=== PATIENT | male | born 1925 | race Caucasian/White ===

== ENCOUNTER → 2016-06-11 | Outpatient (CLI) | payer BC ==
[~2016-06-11] MED LIST: ASPEC81 PO; ATOR-24 PO; CLOP1TAB15 PO; LEVE500T13 PO; LPT40 PO; OXYB1TAB31 PO; PLV75 PO; VLTG EXT
--- NOTE | 2016-06-11 16:53 | DIAGNOSTIC IMAGING REPORT ---
RIGHT WRIST MIN 3 VIEWS ROUTINE CLINICAL HISTORY: Right wrist pain and swelling COMPARISON: None. DISCUSSION: The bones are osteopenic. No acute fractures are visualized. There are vascular calcifications present. There are moderate advanced degenerative changes within the radiocarpal joint. There is secondary narrowing of the radiolunate joint space with lunate sclerosis. There is widening of the scapholunate distance. This likely indicates a scapholunate ligamentous disruption. There is a cyst within the distal radius likely degenerative IMPRESSION: Osteopenia and moderately advanced degenerative change. No acute fractures. Electronically signed by: Rodney Green M.D. 06/11/2016 4:51 PM Dictated Date/Time: 06/11/2016 4:50 PM
--- NOTE | 2016-06-11 16:59 | DIAGNOSTIC IMAGING REPORT ---
RIGHT ELBOW MIN 3 VIEWS ROUTINE CLINICAL HISTORY: Pain and swelling COMPARISON: None. DISCUSSION: There is a joint effusion. There are advanced arthritic changes with intra-articular calcified loose bodies. No acute fractures are visualized. There are no dislocations. There is mild posterior soft tissue swelling IMPRESSION: 1. Advanced arthritic changes. Joint effusion. 2. No acute fractures identified Electronically signed by: Rodney Green M.D. 06/11/2016 4:57 PM Dictated Date/Time: 06/11/2016 4:51 PM
[2016-06-11 17:43] LABS: BASO % 0.4 %; BASO ABS # 0.04 K/uL (0-0.2); COMPLETE YES; EOS % 2.3 %; IG% 0.2 %; LYMPH % 13.3 %; LYMPH ABS # 1.36 K/uL (1.2-3.4); MEAN CELL VOLUME 95.9 fL (80-100); MEAN CORPUSCULAR HEMOGLOBIN 31.9 pg (25-34); MEAN CORPUSCULAR HGB CONC 33.2 g/dl (32-36); MEAN PLATELET VOLUME 9.6 fL (7.4-10.4); MONO % 14.8 %; PLATELET COUNT 385 K/uL (130-400); RED BLOOD COUNT 3.86 M/uL (4.7-6.1); WHITE BLOOD COUNT 10.26 K/uL (4.8-10.8)
[2016-06-11 18:10] LABS: ALT/SGPT 28 U/L (12-78); BLOOD UREA NITROGEN 22 mg/dl (7-18); BUN/CREATININE RATIO 24.3 (10-20); CALCIUM 8.7 mg/dl (8.5-10.1); CARBON DIOXIDE 25 mmol/L (21-32); CHLORIDE 106 mmol/L (98-107); CREATININE 0.91 mg/dl (0.60-1.40); GLUCOSE 86 mg/dl (70-99); POTASSIUM 4.1 mmol/L (3.5-5.1); SODIUM 141 mmol/L (136-145)
[2016-06-11 18:12] LABS: ALB/GLOB RATIO 0.9 (0.9-2); ALKALINE PHOSPHATASE 156 U/L (45-117); AST/SGOT 31 U/L (15-37)
== END | disposition home or self-care (01) ==
LOC: C.RAD1850 16:27
PROVIDERS: ATTEND Internal Medicine
DX: M25.521 Pain in right elbow (principal); M25.421 Effusion, right elbow

== ENCOUNTER 2016-07-18 13:06 | Inpatient (IN) | payer BC, OTHER ==
[~2016-07-18] VITALS: Ht 162.6 cm; Wt 66.3 kg
[~2016-07-18 13:06] MED LIST changes: -ATOR-24 PO; -CLOP1TAB15 PO; -OXYB1TAB31 PO; -VLTG EXT
[2016-07-18] MEDS ORDERED: SODIUM CHLORIDE 0.9% 1000ML 500 ML IV STA (14:20)
[2016-07-18] MEDS ORDERED: ACETAMINOPHEN 500 MG TAB PO STA (14:20)
--- NOTE | 2016-07-18 14:28 | EMERGENCY ROOM VISIT NOTE ---
History Report prepared by Mario: Joseph Mcgee Under the Supervision of: Dr. Edmund Urbina M.D. First contact with patient: 14:07 Chief Complaint: FALL Stated Complaint: FALL, SORE RIBS History of Present Illness The patient is an 89 year old male who presents to the Emergency Room due to a falling episode that occurred several hours prior to arrival. Per the patient's daughter, the patient was found on the floor of the entryway to his home this afternoon. The patient states that he thinks he remembers slipping out of bed and not being able to get himself back up, but is not certain. He is complaining of pain in his lower left ribs following the fall, but was able to ambulate a short distance with his walker after being helped to his feet. The patient's daughter states that she checks on the patient daily, and he seemed to be behaving at baseline yesterday. He has been showing symptoms of memory loss and dementia, but was not out of the ordinary yesterday. He has had a CVA in the past. The patient also has a history of several back surgeries and does not have much feeling in his legs. He is on Plavix as a blood thinner. The patient lives at home alone. He denies any urinary irregularities, or vomiting/ diarrhea lately. Source of History: patient, family Onset: Several Hours [employer] Position: other (Global) Quality: other (Falling episode) Review of Systems See HPI for pertinent positives & negatives. A total of 10 systems reviewed and were otherwise negative. Past Medical & Surgical Medical Problems: (1) CVA (cerebral vascular accident) (2) Fall (3) Neuropathy (4) Weakness Surgical Problems: (1) S/P lumbar spinal fusion Family History No pertinent family history secondary to age. Social History Smoking Status: Former Smoker Alcohol Use: occasionally Housing Status: lives with family Occupation Status: retired Current/Historical Medications Scheduled Atorvastatin (Atorvastatin Calcium), 40 MG PO QAM Clopidogrel Bisulfate (Clopidogrel), 75 MG PO QAM Levetiracetam (Keppra), 500 MG PO BID Allergies Coded Allergies: Sulfa Antibiotics (Verified Allergy, Unknown, "SULFA DRUGS": UNKNOWN, 06/25) Physical Exam Vital Signs Date Time Temp Pulse Resp B/P Pulse Ox O2 Delivery O2 Flow Rate FiO2 07/18/16 17:51 88 18 165/97 98 Room Air 07/18/16 17:43 98 Room Air 07/18/16 17:27 88 16 165/97 98 Room Air 07/18/16 16:07 98 Room Air 07/18/16 16:07 92 16 162/74 98 Room Air 07/18/16 15:20 93 16 151/77 99 Room Air 07/18/16 13:12 36.3 110 22 136/73 100 Room Air Physical Exam GENERAL: Patient is in no acute distress. HEENT: No acute trauma, normocephalic atraumatic, mucous membranes dry, no nasal congestion, no scleral icterus. NECK: No stridor, no adenopathy, no meningismus, trachea is midline. CHEST: There is tenderness along the left lateral lower ribs, no contusion. LUNGS: Clear to auscultation bilaterally, no wheeze, no rhonchi, breath sounds equal. HEART: Without murmurs gallops or rubs, regular rate and rhythm. ABDOMEN: Soft, nontender, bowel sounds positive, no hernias, no peritonitis. EXTREMITIES: No obvious extremity fractures. There are abrasions and contusions consistent with crawling on the hands and knees. Thee are elbow contusions noted as well. No cellulitis or edema. NEUROLOGIC: Oriented x 3, no acute motor or sensory deficits, no focal weakness. SKIN: No rash, no jaundice, no diaphoresis. Medical Decision & Procedures ER Provider Diagnostic Interpretation: X ray results and stated below per my interpretation and radiologist interpretation. Other radiology results and stated below per my review and radiologist interpretation: CT OF THE HEAD WITHOUT CONTRAST CLINICAL HISTORY: Altered mental status. Weakness. Fall. COMPARISON STUDY: Head CT and MRI of the brain June 25, 2015. CT DOSE: 823.94 mGycm TECHNIQUE: Helical axial images of the head were obtained without IV contrast. Automated exposure control was utilized for the study. FINDINGS: No acute intracranial hemorrhage, midline shift or mass effect is present. Ventricular system is stable. The basilar cisterns are patent. There are no extra-axial collections. Scattered old lacunar infarcts are noted as well as moderate small vessel disease. There are no findings to suggest acute dural sinus thrombosis or acute territorial infarct. There is no calvarial fracture. IMPRESSION: 1. No acute intracranial findings. No significant change since previous exam. 2. No calvarial fracture. Electronically signed by: Sam Patrick M.D. 07/18/2016 3:38 PM Dictated Date/Time: 07/18/2016 3:36 PM LEFT RIBS UNILATERAL WITH PA CHEST CLINICAL HISTORY: Left-sided rib pain following fall. COMPARISON STUDY: Chest radiograph June 25, 2015. FINDINGS: There is no pneumothorax or pleural effusion. A 2 level pedicle screw fusion is noted. Cardiomediastinal silhouette is stable. Hazy left basilar opacity likely reflects atelectasis. There are several old left-sided rib fractures. No acute left-sided rib fractures are identified by radiography. IMPRESSION: No pneumothorax. No acute left-sided rib fractures identified. Several old left-sided rib fractures. Electronically signed by: Sam Patrick M.D. 07/18/2016 4:41 PM Dictated Date/Time: 07/18/2016 4:36 PM Laboratory Results 07/18/16 15:00 Red Blood Count 4.05, Mean Corpuscular Volume 92.1, Mean Corpuscular Hemoglobin 31.4, Mean Corpuscular Hemoglobin Concent 34.0, Mean Platelet Volume 9.5, Neutrophils (%) (Auto) 82.0, Lymphocytes (%) (Auto) 7.3, Monocytes (%) (Auto) 10.1, Eosinophils (%) (Auto) 0.2, Basophils (%) (Auto) 0.2, Neutrophils # (Auto ) 8.71, Lymphocytes # (Auto) 0.78, Monocytes # (Auto) 1.07, Eosinophils # (Auto ) 0.02, Basophils # (Auto) 0.02 07/18/16 15:00 Test 07/18/16 15:00 07/18/16 15:10 White Blood Count 10.62 K/uL (4.8-10.8) Red Blood Count 4.05 M/uL (4.7-6.1) Hemoglobin 12.7 g/dL (14.0-18.0) Hematocrit 37.3 % (42-52) Mean Corpuscular Volume 92.1 fL (80-100) Mean Corpuscular Hemoglobin 31.4 pg (25-34) Mean Corpuscular Hemoglobin Concent 34.0 g/dl (32-36) Platelet Count 283 K/uL (130-400) Mean Platelet Volume 9.5 fL (7.4-10.4) Neutrophils (%) (Auto) 82.0 % Lymphocytes (%) (Auto) 7.3 % Monocytes (%) (Auto) 10.1 % Eosinophils (%) (Auto) 0.2 % Basophils (%) (Auto) 0.2 % Neutrophils # (Auto) 8.71 K/uL (1.4-6.5) Lymphocytes # (Auto) 0.78 K/uL (1.2-3.4) Monocytes # (Auto) 1.07 K/uL (0.11-0.59) Eosinophils # (Auto) 0.02 K/uL (0-0.5) Basophils # (Auto) 0.02 K/uL (0-0.2) RDW Standard Deviation 47.9 fL (36.4-46.3) RDW Coefficient of Variation 14.2 % (11.5-14.5) Immature Granulocyte % (Auto) 0.2 % Immature Granulocyte # (Auto) 0.02 K/uL (0.00-0.02) Prothrombin Time 11.3 SECONDS (9.0-12.0) Prothromb Time International Ratio 1.1 (0.9-1.1) Activated Partial Thromboplast Time 28.9 SECONDS (21.0-31.0) Partial Thromboplastin Ratio 1.1 Anion Gap 11.0 mmol/L (3-11) Est Creatinine Clear Calc Drug Dose 42.0 ml/min Estimated GFR () 77.0 Estimated GFR (Non- 66.4 BUN/Creatinine Ratio 19.0 (10-20) Calcium Level 8.7 mg/dl (8.5-10.1) Magnesium Level 2.2 mg/dl (1.8-2.4) Total Bilirubin 0.5 mg/dl (0.2-1) Aspartate Amino Transf (AST/SGOT) 27 U/L (15-37) Alanine Aminotransferase (ALT/SGPT) 32 U/L (12-78) Alkaline Phosphatase 134 U/L (45-117) Total Creatine Kinase 194 U/L (39-308) Troponin I 0.027 ng/ml (0-0.045) Total Protein 6.7 gm/dl (6.4-8.2) Albumin 3.6 gm/dl (3.4-5.0) Globulin 3.1 gm/dl (2.5-4.0) Albumin/Globulin Ratio 1.2 (0.9-2) Thyroid Stimulating Hormone (TSH) 3.300 uIu/ml (0.300-4.500) Urine Color YELLOW Urine Appearance CLEAR (CLEAR) Urine pH 5.5 (4.5-7.5) Urine Specific [place] 1.010 (1.000-1.030) Urine Protein NEG (NEG) Urine Glucose (UA) NEG (NEG) Urine Ketones NEG (NEG) Urine Occult Blood TRACE (NEG) Urine Nitrite NEG (NEG) Urine Bilirubin NEG (NEG) Urine Urobilinogen NEG (NEG) Urine Leukocyte Esterase NEG (NEG) Urine WBC (Auto) 0 /hpf (0-5) Urine RBC (Auto) 0-4 /hpf (0-4) Urine Hyaline Casts (Auto) 1-5 /lpf (0-5) Urine Epithelial Cells (Auto) 0-5 /lpf (0-5) Urine Bacteria (Auto) NEG (NEG) Urine RBC /hpf (0-4) Urine WBC /hpf (0-5) Urine Epithelial Cells /lpf (0-5) Urine Bacteria (NEG) Laboratory results reviewed by me. Medications Administered Medications (Trade) Dose Ordered Sig/Sylvie Route Start Time Stop Time Status Last Admin Dose Admin Sodium Chloride (Nss 1000ml) 500 ml @ 999 mls/hr Q31M STAT IV 07/18/16 14:20 07/18/16 14:50 DC 07/18/16 15:30 999 MLS/HR Acetaminophen (Tylenol Tab) 1,000 mg NOW STAT PO 07/18/16 14:20 07/18/16 14:24 DC 07/18/16 16:09 1,000 MG ECG Indication: altered mental status, weakness Rate (beats per minute): 95 Rhythm: sinus rhythm Findings: 1st degree AV block, no acute ischemic change, no ectopy, other ( Artifact present) ED Course 1413: The patient was evaluated in room C1. A complete history and physical exam was performed. 1420: Ordered Acetaminophen 1000 mg PO, Sodium Chloride 500 mL @ 999 mL/hr IV. 1534: I checked on the patient at this time, he had no further complaints 1657: I reevaluated the patient at this time. He was resting in bed. 1707: I discussed the case with Dr. Cesar López [facility] hospitalist, he will evaluate the patient for further treatment. Medical Decision Differential diagnosis include: dehydration, anemia, electrolyte imbalance, stroke, intracranial bleeding, debilitation, urinary tract infection, and other infection. There is no leukocytosis or worrisome anemia. No significant electrolyte abnormality, kidney failure or hepatitis. EKG shows a sinus rhythm, no acute ischemia. Cardiac enzyme testing times one is not consistent with acute cardiac injury. There is no rhabdomyolysis. The patient appears to be in a euthyroid state. Urinalysis does not show signs of infection. There is no coagulopathy. Left rib series shows some old, healed fractures, no acute rib fracture, no pneumonia or pneumothorax. Brain CT showed no acute bleed or mass effect. On exam, the patient had lower extremity weakness which seemed equal on both sides. He did seem dehydrated clinically. The patient received IV saline, he was given oral Tylenol for his pain. I do not think the patient is safe for discharge. He has been crawling on his hands and knees as he could not get off the floor on his own. He is weak, especially in his lower extremities bilaterally. His daughter states that he could not stand and walk as usual with his walker today once she got him up off the floor of the house. I think the patient requires strengthening, further workup in the hospital. I talked to case management. The on-call hospitalist was consulted. Consults Time Called: 1700 Consulting Physician: Dr. Cesar EDMONDS Hospitalist Returned Call: [phone] I discussed the case with Dr. Cesar [facility]DS [facility], he will evaluate the patient for further treatment. Impression Primary Impression: Weakness Additional Impressions: Fall Contusion of rib on left side Dehydration Scribe Attestation The scribe's documentation has been prepared under my direction and personally reviewed by me in its entirety. I confirm that the note above accurately reflects all work, treatment, procedures, and medical decision making performed by me. Departure Information Dispostion Being Evaluated By Hospitalist RV. Felix MD (PCP) Patient Instructions My [facility] Problem Qualifiers Additional Impressions: Fall Encounter type: initial encounter Qualified Codes: W19.XXXA - Unspecified fall, initial encounter Contusion of rib on left side Encounter type: initial encounter Qualified Codes: S20.212A - Contusion of left front wall of thorax, initial encounter
[2016-07-18 15:07] LABS: BASO % 0.2 %; BASO ABS # 0.02 K/uL (0-0.2); COMPLETE YES; EOS % 0.2 %; HEMATOCRIT 37.3 % (42-52); IG% 0.2 %; LYMPH % 7.3 %; LYMPH ABS # 0.78 K/uL (1.2-3.4); MEAN CELL VOLUME 92.1 fL (80-100); MEAN CORPUSCULAR HEMOGLOBIN 31.4 pg (25-34); MEAN PLATELET VOLUME 9.5 fL (7.4-10.4); MONO % 10.1 %; PLATELET COUNT 283 K/uL (130-400); RED BLOOD COUNT 4.05 M/uL (4.7-6.1); WHITE BLOOD COUNT 10.62 K/uL (4.8-10.8)
[2016-07-18 15:19] LABS: INR 1.1 (0.9-1.1); PARTIAL THROMBOPLASTIN RATIO 1.1; PROTHROMBIN TIME (PATIENT) 11.3 SECONDS (9.0-12.0)
[2016-07-18 15:25] LABS: CALCIUM 8.7 mg/dl (8.5-10.1); MAGNESIUM 2.2 mg/dl (1.8-2.4); POTASSIUM 4.5 mmol/L (3.5-5.1)
[2016-07-18 15:29] LABS: URINE APPEARANCE CLEAR (CLEAR); URINE BILIRUBIN NEG (NEG); URINE COLOR YELLOW; URINE NITRITE NEG (NEG); URINE PH 5.5 (4.5-7.5); UROBILINOGEN NEG (NEG)
[2016-07-18 15:36] LABS: ALB/GLOB RATIO 1.2 (0.9-2); THYROID STIMULATING HORMONE 3.3 uIu/ml (0.300-4.500)
--- NOTE | 2016-07-18 15:39 | DIAGNOSTIC IMAGING REPORT ---
CT OF THE HEAD WITHOUT CONTRAST CLINICAL HISTORY: Altered mental status. Weakness. Fall. COMPARISON STUDY: Head CT and MRI of the brain June 25, 2015. CT DOSE: 823.94 mGycm TECHNIQUE: Helical axial images of the head were obtained without IV contrast. Automated exposure control was utilized for the study. FINDINGS: No acute intracranial hemorrhage, midline shift or mass effect is present. Ventricular system is stable. The basilar cisterns are patent. There are no extra-axial collections. Scattered old lacunar infarcts are noted as well as moderate small vessel disease. There are no findings to suggest acute dural sinus thrombosis or acute territorial infarct. There is no calvarial fracture. IMPRESSION: 1. No acute intracranial findings. No significant change since previous exam. 2. No calvarial fracture. Electronically signed by: Sam Patrick M.D. 07/18/2016 3:38 PM Dictated Date/Time: 07/18/2016 3:36 PM
[2016-07-18 15:47] LABS: REVIEW REQ? NO; URINE EPITHELIAL CELL AUTO 0-5 /lpf (0-5)
[2016-07-18 15:48] LABS: ZZURINE CULT IF INDIC CATH NO
[2016-07-18 15:49] LABS: MANUAL MICROSCOPIC REQUIRED? NO
--- NOTE | 2016-07-18 16:52 | DIAGNOSTIC IMAGING REPORT ---
LEFT RIBS UNILATERAL WITH PA CHEST CLINICAL HISTORY: Left-sided rib pain following fall. COMPARISON STUDY: Chest radiograph June 25, 2015. FINDINGS: There is no pneumothorax or pleural effusion. A 2 level pedicle screw fusion is noted. Cardiomediastinal silhouette is stable. Hazy left basilar opacity likely reflects atelectasis. There are several old left-sided rib fractures. No acute left-sided rib fractures are identified by radiography. IMPRESSION: No pneumothorax. No acute left-sided rib fractures identified. Several old left-sided rib fractures. Electronically signed by: Sam Patrick M.D. 07/18/2016 4:41 PM Dictated Date/Time: 07/18/2016 4:36 PM
[2016-07-18] MEDS ORDERED: MAGNESIUM HYDROXIDE SUSP 30 ML UDC PO PRN (17:15)
[2016-07-18] MEDS ORDERED: POLYETHYLENE (MIRALAX) 17 GM PACK PO PRN (17:15)
[2016-07-18] MEDS ORDERED: ONDANSETRON INJ 2 MG/ML 2 ML VIAL IV PRN (17:15)
[2016-07-18] MEDS ORDERED: ALUMINUM/MAGNESIUM/SIMETH (MAALOX MAX) 30 ML UDC PO PRN (17:15)
[2016-07-18 17:43] VITALS: O2SAT 98; Ht 162.6 cm; Wt 66.3 kg
--- NOTE | 2016-07-18 18:49 | HISTORY & PHYSICAL EXAMINATION ---
DATE OF ADMISSION: 07/18/2016 CHIEF COMPLAINT: Fall and weakness. HISTORY OF PRESENT ILLNESS: This is an 89-year-old male, who presents to the Emergency Room due to a fall that happened this afternoon. The patient's daughter is present at the bedside. They found him on the floor in the entryway of his home this afternoon. The patient lives alone. The patient stated that he remembers slipping off the bed and not being able to get himself back up. The patient is not certain. He is complaining of pain in his lower ribs following the fall on the left side. His daughter checks on him daily and she mentioned that he was showing symptoms of memory loss and dementia today. He has a history of stroke before and he is taking Plavix because of that. He denies any urinary complaints. No nausea, vomiting, diarrhea or constipation. REVIEW OF SYSTEMS: Negative except as above. Ten out of fourteen systems were reviewed. PAST MEDICAL HISTORY: CVA, fall, neuropathy, weakness status post lumbar fusion, history of seizures. SOCIAL HISTORY: Does not smoke. Drinks occasionally, a few drinks a week. Lives alone at home. CURRENT MEDICATIONS: Atorvastatin 40 mg daily, Plavix 75 mg p.o. daily, Keppra 500 mg p.o. b.i.d. ALLERGIES: PATIENT HAS ALLERGY TO SULFA ANTIBIOTICS. PHYSICAL EXAMINATION: VITAL SIGNS: Temperature 36.3 degrees, pulse 92, respirations 16, blood pressure 162/74, 98% on room air. GENERAL: Not in acute distress. HEENT: Normocephalic, atraumatic. PERRLA, EOMI. Mouth; mucous membranes are dry. No lesions. NECK: No JVD. Trachea is midline. Thyroid is not enlarged. LUNGS: Clear to auscultation bilateral. No wheezes, no rhonchi. HEART: There is tenderness along the left lateral lower ribs. No murmurs. RRR. S1, S2. ABDOMEN: Soft, nontender and nondistended. Bowel sounds present bilateral. EXTREMITIES: No clubbing or cyanosis. There is trace pedal edema present and also there is elbow contusion noted. No cellulitis. NEUROLOGIC: Alert, oriented x3. Motor and sensory are normal. Deep tendon reflexes 2+ bilateral. SKIN: No rash. No jaundice. LABORATORY DATA: White count of 10.6, hemoglobin of 12.7, platelets 283. BMP: Sodium 144, potassium 4.5, chloride 108, CO2 of 25, BUN 19, creatinine 1.0, glucose 115, albumin of 3.6. Urinalysis; essentially normal. ASSESSMENT AND PLAN: An 89-year-old male, who comes with a fall and weakness from home. 1. Fall, weakness and fatigue likely secondary to dehydration. Start patient on 50 mL per hour normal saline with lower doses because of the lower extremity trace pedal edema. 2. Fall with left rib pain, chest x-ray showing no evidence of new fractures, just old fractures. PT/OT evaluation. The patient may require placement. Family in agreement with that. 3. History of cerebrovascular accident, possible dementia, neuropathy, hyperlipidemia, seizures. Continue atorvastatin, clopidogrel and levothyroxine. Deep venous thrombosis gastrointestinal prophylaxis. The patient is Do Not Resuscitate. Time spent doing this admission; 48 minutes. MTDD
[2016-07-18] MEDS: SODIUM CHLORIDE 0.9% 1000ML 1,000 ML IV SCH (19:40)
[2016-07-18] MEDS ORDERED: NURSING DECISION MEDICATION ORDER SCH (20:00)
[2016-07-18] MEDS: LEVETIRACETAM 500 MG TAB PO SCH (20:32)
[2016-07-18] MEDS: ATORVASTATIN 40 MG TAB PO SCH (20:32)
[2016-07-18] MEDS: ACETAMINOPHEN 325 MG TAB PO PRN (20:41)
[2016-07-18] MEDS: HEPARIN SOD 5000 UNIT/0.5 ML CARP SQ SCH (20:41)
[2016-07-18 22:03] VITALS: BP 144/79; PULSE 85; TEMP 36.3; O2SAT 99
[2016-07-18 22:47] VITALS: BP 125/79; PULSE 83; TEMP 36.8; O2SAT 96
[2016-07-19 06:51] LABS: BASO % 0.5 %; BASO ABS # 0.03 K/uL (0-0.2); COMPLETE YES; EOS % 3.1 %; HEMATOCRIT 32.9 % (42-52); IG% 0.3 %; LYMPH % 23.5 %; LYMPH ABS # 1.36 K/uL (1.2-3.4); MEAN CELL VOLUME 92.7 fL (80-100); MEAN CORPUSCULAR HEMOGLOBIN 31.3 pg (25-34); MEAN CORPUSCULAR HGB CONC 33.7 g/dl (32-36); MEAN PLATELET VOLUME 9.6 fL (7.4-10.4); MONO % 14.2 %; NEUT % 58.4 %; PLATELET COUNT 265 K/uL (130-400); RED BLOOD COUNT 3.55 M/uL (4.7-6.1); WHITE BLOOD COUNT 5.78 K/uL (4.8-10.8)
[2016-07-19 07:15] LABS: BUN/CREATININE RATIO 18.3 (10-20); CALCIUM 8.3 mg/dl (8.5-10.1); CREATININE 0.92 mg/dl (0.60-1.40); POTASSIUM 3.8 mmol/L (3.5-5.1)
[2016-07-19 07:52] VITALS: BP 124/74; PULSE 75; TEMP 36.7; O2SAT 95
[2016-07-19] MEDS: CLOPIDOGREL BISULFATE 75 MG TAB PO SCH (08:05)
[2016-07-19] MEDS: LEVETIRACETAM 500 MG TAB PO SCH ×2 (08:05→20:30)
[2016-07-19] MEDS: HEPARIN SOD 5000 UNIT/0.5 ML CARP SQ SCH ×2 (08:13→20:36)
--- NOTE | 2016-07-19 08:23 | Hospitalist Progress Note ---
Hospitalist Progress Note Date of Service Jul 19, 2016. Subjective Pt evaluation today including: conversation w/ patient, conversation w/ family , physical exam, chart review, lab review, review of studies, review of inpatient medication list Pain: 5/10 rib pain with movement PO Intake: Good Voiding: no voiding problems The patient was seen and examined this morning. Pt reports moderate pain when he moves in the left side of his ribs. His daughter is present at bedside. Pt is eating ok but drinking poorly prior to admission- he normally only has a small cup of OJ in the morning and then a beer or two daily. Little to no water on a daily basis. Pt lives alone and has PT coming into his house twice weekly for PT since his stroke in Jun 2015. Daughter reports much of the PT is optional though. Discussion was held regarding acute rehab for PT/OT and they are agreeable to this. Constitutional: No chills, No fever, No sweats Eyes: No problem reported ENT: + hearing loss Respiratory: + cough (occasional), No dyspnea on exertion, No shortness of breath, No wheezing Cardiovascular: No chest pain, No orthopnea, No palpitations Abdomen: No diarrhea, No nausea, No pain, No vomiting Musculoskeletal: No joint pain, No muscle pain, No swelling Male : No dysuria Neurologic: + balance problems (uses a walker at baseline with ambulation), + numbness/tingling (BLE secondary to back surgeries), + weakness (LLE, ) Endo: No fatigue Objective Vital Signs Date Time Temp Pulse Resp B/P Pulse Ox O2 Delivery O2 Flow Rate FiO2 07/19/16 07:52 36.7 75 13 124/74 95 Room Air 07/19/16 00:00 Room Air 07/18/16 22:47 36.8 83 16 125/79 96 Room Air 07/18/16 22:03 36.3 85 18 144/79 99 Room Air 07/18/16 19:15 83 18 125/52 97 07/18/16 17:51 88 18 165/97 98 Room Air 07/18/16 17:43 98 Room Air 07/18/16 17:27 88 16 165/97 98 Room Air 07/18/16 16:07 98 Room Air 07/18/16 16:07 92 16 162/74 98 Room Air 07/18/16 15:20 93 16 151/77 99 Room Air 07/18/16 13:12 36.3 110 22 136/73 100 Room Air Physical Exam General Appearance: WD/WN, no apparent distress ENT: pharynx normal, + pertinent finding (hard of hearing, does not wear hearing aid. ) Neck: supple, no JVD Respiratory/Chest: lungs clear, no respiratory distress, no accessory muscle use, + pertinent finding (+ ecchymosis mild overlying the left 9th-11th rib region, some more ecchymosis on the right posterior chest wall, + cough with coase breath sounds present) Cardiovascular: regular rate, rhythm, no murmur Abdomen: normal bowel sounds, non tender, soft Extremities: non-tender, no calf tenderness, + pertinent finding (+ ecchymosis on bilateral knees, + mild ecchymosis of the right inner thigh. ) Neurologic/Psychiatric: alert, normal mood/affect, oriented x 3 Skin: warm/dry Laboratory Results Last 24 Hours Test 07/18/16 15:00 07/18/16 15:10 07/19/16 06:12 White Blood Count 10.62 K/uL 5.78 K/uL Red Blood Count 4.05 M/uL 3.55 M/uL Hemoglobin 12.7 g/dL 11.1 g/dL Hematocrit 37.3 % 32.9 % Mean Corpuscular Volume 92.1 fL 92.7 fL Mean Corpuscular Hemoglobin 31.4 pg 31.3 pg Mean Corpuscular Hemoglobin Concent 34.0 g/dl 33.7 g/dl Platelet Count 283 K/uL 265 K/uL Mean Platelet Volume 9.5 fL 9.6 fL Neutrophils (%) (Auto) 82.0 % 58.4 % Lymphocytes (%) (Auto) 7.3 % 23.5 % Monocytes (%) (Auto) 10.1 % 14.2 % Eosinophils (%) (Auto) 0.2 % 3.1 % Basophils (%) (Auto) 0.2 % 0.5 % Neutrophils # (Auto) 8.71 K/uL 3.37 K/uL Lymphocytes # (Auto) 0.78 K/uL 1.36 K/uL Monocytes # (Auto) 1.07 K/uL 0.82 K/uL Eosinophils # (Auto) 0.02 K/uL 0.18 K/uL Basophils # (Auto) 0.02 K/uL 0.03 K/uL RDW Standard Deviation 47.9 fL 50.2 fL RDW Coefficient of Variation 14.2 % 14.7 % Immature Granulocyte % (Auto) 0.2 % 0.3 % Immature Granulocyte # (Auto) 0.02 K/uL 0.02 K/uL Prothrombin Time 11.3 SECONDS Prothromb Time International Ratio 1.1 Activated Partial Thromboplast Time 28.9 SECONDS Partial Thromboplastin Ratio 1.1 Sodium Level 144 mmol/L 145 mmol/L Potassium Level 4.5 mmol/L 3.8 mmol/L Chloride Level 108 mmol/L 110 mmol/L Carbon Dioxide Level 25 mmol/L 23 mmol/L Anion Gap 11.0 mmol/L 12.0 mmol/L Blood Urea Nitrogen 19 mg/dl 17 mg/dl Creatinine 1.00 mg/dl 0.92 mg/dl Est Creatinine Clear Calc Drug Dose 42.0 ml/min 45.6 ml/min Estimated GFR () 77.0 85.2 Estimated GFR (Non- 66.4 73.5 BUN/Creatinine Ratio 19.0 18.3 Random Glucose 115 mg/dl 77 mg/dl Calcium Level 8.7 mg/dl 8.3 mg/dl Magnesium Level 2.2 mg/dl Total Bilirubin 0.5 mg/dl Aspartate Amino Transf (AST/SGOT) 27 U/L Alanine Aminotransferase (ALT/SGPT) 32 U/L Alkaline Phosphatase 134 U/L Total Creatine Kinase 194 U/L Troponin I 0.027 ng/ml Total Protein 6.7 gm/dl Albumin 3.6 gm/dl Globulin 3.1 gm/dl Albumin/Globulin Ratio 1.2 Thyroid Stimulating Hormone (TSH) 3.300 uIu/ml Urine Color YELLOW Urine Appearance CLEAR Urine pH 5.5 Urine Specific [place] 1.010 Urine Protein NEG Urine Glucose (UA) NEG Urine Ketones NEG Urine Occult Blood TRACE Urine Nitrite NEG Urine Bilirubin NEG Urine Urobilinogen NEG Urine Leukocyte Esterase NEG Urine WBC (Auto) 0 /hpf Urine RBC (Auto) 0-4 /hpf Urine Hyaline Casts (Auto) 1-5 /lpf Urine Epithelial Cells (Auto) 0-5 /lpf Urine Bacteria (Auto) NEG Urine RBC /hpf Urine WBC /hpf Urine Epithelial Cells /lpf Urine Bacteria Assessment and Plan 89 yo M with PMHx of falls, CVA, hypothyroidism, weakness and possible underlying dementia s/p fall with L rib pain. Falls, Weakness, L rib pain - considered dehydration at time of admission and likely with chronic poor fluid intake and etoh use 1-2 beers daily. - Has falled twice within the past 3 months, has a life alert button, family involved, has PT coming into his home twice weekly s/p CVA Jun 2015. - CXR showing old rib fractures, but no new fractures. - CT head without acute intracranial findings. No significant change since previous exam. No calvarial fracture. - Left lower extremity with complaints of shaking and restless leg like syndrome prior to admission but pt reports it has been better since being here - will follow. - PT/OT consulted- pt will likely need to have at least acute rehab placement, will ask CM to assist with this. Hx CVA - Continue atorvastatin, plavix - Hgb stable with recent fall, no signs of repeat CVA as seen on CT. Hematuria - Occult blood on UA: likely due to acute fall with hx of being on plavix. Will check repeat UA today. - Pt denies pain with urination- can consider urological workup for bladder cx if indicated Hypothyroidism - Cont levothyroxine DVT ppx: SCDs Disposition: From home alone, CM to assist with d/c planning, PT/OT consults
[2016-07-19 08:41] VITALS: O2SAT 95
[2016-07-19] MEDS ORDERED: ATORVASTATIN 40 MG TAB PO SCH (09:00)
[2016-07-19] MEDS: SODIUM CHLORIDE 0.9% 1000ML 1,000 ML IV SCH (14:33)
[2016-07-19] MEDS: ACETAMINOPHEN 325 MG TAB PO PRN (18:56)
[2016-07-19] MEDS: ATORVASTATIN 40 MG TAB PO SCH (20:30)
[2016-07-19 23:11] VITALS: BP 156/74; PULSE 16; PULSE 83; TEMP 36.6; O2SAT 95
[2016-07-20] MEDS: ACETAMINOPHEN 325 MG TAB PO PRN ×2 (05:02→09:34)
[2016-07-20 07:36] VITALS: BP 155/80; PULSE 74; TEMP 36.6; O2SAT 95
[2016-07-20] MEDS: LEVETIRACETAM 500 MG TAB PO SCH ×2 (07:50→20:30)
[2016-07-20] MEDS: CLOPIDOGREL BISULFATE 75 MG TAB PO SCH (07:51)
[2016-07-20] MEDS: HEPARIN SOD 5000 UNIT/0.5 ML CARP SQ SCH ×2 (07:54→20:41)
[2016-07-20] MEDS: SODIUM CHLORIDE 0.9% 1000ML 1,000 ML IV SCH (09:33)
--- NOTE | 2016-07-20 11:27 | Hospitalist Progress Note ---
Hospitalist Progress Note Date of Service Jul 20, 2016. Subjective Pt evaluation today including: conversation w/ patient, conversation w/ family , physical exam, chart review, lab review, review of studies, review of inpatient medication list Pain: Left sided rib pain, moderate PO Intake: Eating well, not drinking much fluid Voiding: no voiding problems The patient was seen and examined this morning. Pt reports not sleeping at all last night due to severe pain. He didn't receive anything for pain until this morning; tylenol. He is tired upon entry into the room and daughter states he has just woken up. He's answering appropriately but takes some time to respond to my questions. Denies fever, chills, sweats, heart palpitations, or shortness of breath. Discussed working with PT today and pt plans to later this morning. All Other Systems: Reviewed and Negative (other than per HPI) Objective Vital Signs Date Time Temp Pulse Resp B/P Pulse Ox O2 Delivery O2 Flow Rate FiO2 07/20/16 07:36 36.6 74 18 155/80 95 07/20/16 07:35 Room Air 07/20/16 00:00 Room Air 07/19/16 23:11 36.6 83 16 156/74 95 Room Air 07/19/16 16:00 Room Air Physical Exam General Appearance: WD/WN, no apparent distress Eyes: PERRL, EOMI ENT: pharynx normal, + pertinent finding (slightly hard of hearing) Neck: no adenopathy, no JVD Respiratory/Chest: lungs clear, normal breath sounds, no respiratory distress, no accessory muscle use Cardiovascular: regular rate, rhythm, no gallop, no murmur Abdomen: normal bowel sounds, non tender Extremities: non-tender, no pedal edema, no calf tenderness Neurologic/Psychiatric: alert, + pertinent finding (slow responses to my questions at times, difficulty naming the months backwards. ) Skin: warm/dry, + pertinent finding (+ ecchymosis evolving over left ribs, bilateral knees, and right inner thigh.) Assessment and Plan 89 yo M with PMHx of falls, CVA, hypothyroidism, weakness and possible underlying dementia s/p fall with L rib pain. Falls, Weakness, L rib pain - considered dehydration at time of admission and likely with chronic poor fluid intake and etoh use 1-2 beers daily. - Has falled twice within the past 3 months, has a life alert button, family involved, has PT coming into his home twice weekly s/p CVA Jun 2015. - CXR showing old rib fractures, but no new fractures. - CT head without acute intracranial findings. No significant change since previous exam. No calvarial fracture. - Left lower extremity with complaints of shaking and restless leg like syndrome prior to admission - reports this is worse today but may be due to lack of sleep last night. - PT/OT consulted- CM to assist with this - making referrals to [place] per PT recs for rehab Hx CVA - Continue atorvastatin, plavix - Hgb stable with recent fall, no signs of repeat CVA as seen on CT. Hematuria - Occult blood on UA: likely due to acute fall with hx of being on plavix. Will check repeat UA today. - Pt denies pain with urination- can consider urological workup for bladder cx if indicated Hypothyroidism - Cont levothyroxine DVT ppx: SCDs Disposition: From home alone, CM to assist with d/c planning, PT/OT consults recs rehab, making referrals to [place]. D/c likely within 1 day.
[2016-07-20 14:44] VITALS: BP 116/73; PULSE 78; TEMP 36.4; O2SAT 95
[2016-07-20] MEDS: ATORVASTATIN 40 MG TAB PO SCH (20:30)
[2016-07-21] VITALS: BP 155/81; PULSE 81; TEMP 36.7; O2SAT 95
[2016-07-21 01:24] VITALS: O2SAT 95
[2016-07-21] MEDS: SODIUM CHLORIDE 0.9% 1000ML 1,000 ML IV SCH (05:28)
[2016-07-21 08:32] VITALS: O2SAT 96
[2016-07-21 08:33] VITALS: BP 138/72; PULSE 72; TEMP 36.5; O2SAT 96
[2016-07-21] MEDS: CLOPIDOGREL BISULFATE 75 MG TAB PO SCH (08:42)
[2016-07-21] MEDS: LEVETIRACETAM 500 MG TAB PO SCH (08:43)
[2016-07-21] MEDS: HEPARIN SOD 5000 UNIT/0.5 ML CARP SQ SCH (08:45)
--- NOTE | 2016-07-21 09:25 | Discharge Instructions ---
Discharge Instructions Admission Reason for Admission: Fall,Weakness Discharge Discharge Diagnosis / Problem: Fall, weakness Discharge Goals Goal(s): Decrease discomfort, Improve function, Increase independence Activity Recommendations Activity Limitations: per Instructions/Follow-up section Lifting Limitations: no more than 10 pounds Exercise/Sports Limitations: as tolerated, gradually increase as tolerated Shower/Bathe: no limitations (with assistance) Driving or Machine Use: do not drive . Instructions / Follow-Up Instructions / Follow-Up You were admitted to [facility] with fall, weakness and diagnosed with fall and weakness secondary dehydration. During your stay here you were treated with intravenous fluids. Imaging studies which were completed include Xray of the chest to assess for fractures, and were normal. Continue taking your medications as prescribed Follow up with the PCP within 24-48 hrs. Continue drinking water as you can tolerate it to remain well hydrated. You are being discharged to [place] today. Current Hospital Diet Patient's current hospital diet: AHA Diet (Heart Healthy) Discharge Diet Recommended Diet: AHA Diet (Heart Healthy) Procedures Procedures Performed: none Pending Studies Studies pending at discharge: no Medical Emergencies . Who to Call and When: Medical Emergencies: If at any time you feel your situation is an emergency, please call 911 immediately. . Non-Emergent Contact Non-Emergency issues call your: Primary Care Provider Call Non-Emergent contact if: temperature is above 100.5, your pain is not controlled, your pain is worsening, your pain is concerning you, wound has increased pain . Past History Medical & Surgical History: (1) Fall (2) Weakness (3) Dehydration . "Provider Documentation" section prepared by Gracy Knutson. VTE Core Measure Inpt VTE Proph given/why not?: Other Anticoagulation, SCD's
--- NOTE | 2016-07-21 09:34 | Discharge Summary ---
Discharge Summary Admission Date: Jul 18, 2016 at 17:14 Discharge Date: Jul 21, 2016 Discharge Disposition: senior living facility Principal Diagnosis: Fall, weakness secondary to dehydration Problems/Secondary Diagnoses: Hx CVA on plavix, mild hematuria secondary to fall while on plavix, Hypothyroidism Immunizations: Have You Had Influenza Vaccine: Yes Influenza Vaccine Date: May 29, 2006 History of Tetanus Vaccine?: Yes Tetanus Immunization Date: Sep 27, 2006 History of Pneumococcal: Yes History of Hepatitis B Vaccine: No Procedures: LEFT RIBS UNILATERAL WITH PA CHEST CLINICAL HISTORY: Left-sided rib pain following fall. COMPARISON STUDY: Chest radiograph June 25, 2015. FINDINGS: There is no pneumothorax or pleural effusion. A 2 level pedicle screw fusion is noted. Cardiomediastinal silhouette is stable. Hazy left basilar opacity likely reflects atelectasis. There are several old left-sided rib fractures. No acute left-sided rib fractures are identified by radiography. IMPRESSION: No pneumothorax. No acute left-sided rib fractures identified. Several old left-sided rib fractures. Electronically signed by: Sam Patrick M.D. 07/18/2016 4:41 PM Dictated Date/Time: 07/18/2016 4:36 PM The status of this report is Signed. CT OF THE HEAD WITHOUT CONTRAST CLINICAL HISTORY: Altered mental status. Weakness. Fall. COMPARISON STUDY: Head CT and MRI of the brain June 25, 2015. CT DOSE: 823.94 mGycm TECHNIQUE: Helical axial images of the head were obtained without IV contrast. Automated exposure control was utilized for the study. FINDINGS: No acute intracranial hemorrhage, midline shift or mass effect is present. Ventricular system is stable. The basilar cisterns are patent. There are no extra-axial collections. Scattered old lacunar infarcts are noted as well as moderate small vessel disease. There are no findings to suggest acute dural sinus thrombosis or acute territorial infarct. There is no calvarial fracture. IMPRESSION: 1. No acute intracranial findings. No significant change since previous exam. 2. No calvarial fracture. Electronically signed by: Sam Patrick M.D. 07/18/2016 3:38 PM Dictated Date/Time: 07/18/2016 3:36 PM The status of this report is Signed. Consultations: none Medication Reconciliation Continued Medications: Atorvastatin (Atorvastatin Calcium) 40 Mg Tab 40 MG PO QAM for 30 Days, #30 TAB Clopidogrel Bisulfate (Clopidogrel) 75 Mg Tab 75 MG PO QAM for 30 Days, #30 TAB Levetiracetam (Keppra) 500 Mg Tab 500 MG PO BID, #60 Discharge Exam The patient was seen and examined this morning. Pt reports doing well other than left rib pain, some hip pain in the left side, also with some pain of the right lateral thigh. He complains of urine incontinence yesterday x 4, daughter reports this was occuring at home. Recent UA is negative for infection. Discussed with the patient to continue drinking fluids to help keep him hydrated. Also likely that being well hydrated has added to increased urine production and pt is noticing incontinence more. He denies gross hematuria, abdominal pain, dysuria, abd pain. Review of Systems: Constitutional: No fever, No weakness ENT: No sore throat, No trouble swallowing Respiratory: No cough, No dyspnea on exertion, No shortness of breath, No sputum, No wheezing Cardiovascular: No chest pain, No palpitations Abdomen: No constipation, No diarrhea, No nausea, No pain, No vomiting Musculoskeletal: No calf pain, No swelling Genitourinary - Male: + urinary incontinence, No dysuria, No hematuria, No urinary frequency, No urinary urgency Neurologic: No numbness/tingling Endocrine: No fatigue Integumentary: + problem reported (Evolving echymosis of the right lateral thigh, left ribs. ) Hospital Course H&P Per Dr. Guerrero HISTORY OF PRESENT ILLNESS: This is an 89-year-old male, who presents to the Emergency Room due to a fall that happened this afternoon. The patient's daughter is present at the bedside. They found him on the floor in the entryway of his home this afternoon. The patient lives alone. The patient stated that he remembers slipping off the bed and not being able to get himself back up. The patient is not certain. He is complaining of pain in his lower ribs following the fall on the left side. His daughter checks on him daily and she mentioned that he was showing symptoms of memory loss and dementia today. He has a history of stroke before and he is taking Plavix because of that. He denies any urinary complaints. No nausea, vomiting, diarrhea or constipation.89 yo M with PMHx of falls, CVA, hypothyroidism, weakness and possible underlying dementia s/p fall with L rib pain. Hospital Course: Falls, Weakness, L rib pain - considered dehydration at time of admission and likely with chronic poor fluid intake and etoh use 1-2 beers daily. - Has fallen twice within the past 3 months, has a life alert button, family involved, has PT coming into his home twice weekly s/p CVA Jun 2015. - CXR showing old rib fractures, but no new fractures. - CT head without acute intracranial findings. No significant change since previous exam. No calvarial fracture. - Left lower extremity with complaints of shaking and restless leg like syndrome prior to admission - reports this is worse today but may be due to lack of sleep last night. - PT/OT consulted- CM to assist with this - making referrals to [place] per PT recs for rehab Hx CVA - Continue atorvastatin, plavix - Hgb stable with recent fall, no signs of repeat CVA as seen on CT. Hematuria - Occult blood on UA: likely due to acute fall with hx of being on plavix. Will check repeat UA today. - Pt denies pain with urination- can consider urological workup for bladder cx if indicated Hypothyroidism - Cont levothyroxine DVT ppx: SCDs Disposition: From home alone, CM to assist with d/c planning, PT/OT consults recs rehab, making referrals to [place]. D/c likely within 1 day. Total Time Spent: Greater than 30 minutes This includes examination of the patient, discharge planning, medication reconciliation, and communication with other providers. Discharge Instructions Please refer to the electronic Patient Visit Report (Discharge Instructions) for additional information. Follow-Up With PCP at SNF within 24-48 hours.
[2016-07-21 09:45] LABS: BASO % 0.6 %; BASO ABS # 0.03 K/uL (0-0.2); COMPLETE YES; EOS % 2.8 %; HEMATOCRIT 34.6 % (42-52); IG% 0.2 %; LYMPH % 21.5 %; LYMPH ABS # 1.17 K/uL (1.2-3.4); MEAN CELL VOLUME 93.8 fL (80-100); MEAN CORPUSCULAR HEMOGLOBIN 31.4 pg (25-34); MEAN CORPUSCULAR HGB CONC 33.5 g/dl (32-36); MEAN PLATELET VOLUME 9.2 fL (7.4-10.4); NEUT % 61.9 %; PLATELET COUNT 240 K/uL (130-400); RED BLOOD COUNT 3.69 M/uL (4.7-6.1); WHITE BLOOD COUNT 5.45 K/uL (4.8-10.8)
[2016-07-21 10:17] LABS: BUN/CREATININE RATIO 13.8 (10-20); CALCIUM 8.3 mg/dl (8.5-10.1); POTASSIUM 3.8 mmol/L (3.5-5.1)
[2016-07-21 10:53] VITALS: BP 138/72; PULSE 72; TEMP 36.5; O2SAT 96
== END 2016-07-21 11:30 | DRG 641 ==
LOC: ENRESERVDT → ENRESERVTM → C.EDB 13:08 → C.MS2W 17:14
PROVIDERS: ADMIT Hospitalist; ATTEND Hospitalist
DX: E86.0 Dehydration (principal); Z86.73 Personal history of transient ischemic attack (TIA), and cerebral infarction without residual deficits; Z79.02 Long term (current) use of antithrombotics/antiplatelets; G62.9 Polyneuropathy, unspecified; Z98.1 Arthrodesis status; Z79.899 Other long term (current) drug therapy; E78.5 Hyperlipidemia, unspecified; Z66 Do not resuscitate; H91.90 Unspecified hearing loss, unspecified ear; R31.9 Hematuria, unspecified; E03.9 Hypothyroidism, unspecified; R53.1 Weakness; R07.81 Pleurodynia; R32 Unspecified urinary incontinence; F03.90 Unspecified dementia, unspecified severity, without behavioral disturbance, psychotic disturbance, mood disturbance, and anxiety; W19.XXXA Unspecified fall, initial encounter; Z91.81 History of falling; Y92.009 Unspecified place in unspecified non-institutional (private) residence as the place of occurrence of the external cause

== ENCOUNTER 2016-11-18 15:02 | Inpatient (IN) | payer BC, OTHER ==
[~2016-11-18] VITALS: Ht 162.6 cm; Wt 66.0 kg
[~2016-11-18 15:02] MED LIST changes: -ASPEC81 PO
--- NOTE | 2016-11-18 15:41 | DIAGNOSTIC IMAGING REPORT ---
CHEST ONE VIEW PORTABLE CLINICAL HISTORY: Mood Disorder mental status change COMPARISON STUDY: 06/25/2015 FINDINGS: Mild stable cardia megaly. Lungs are clear. Diaphragms are smooth. IMPRESSION: No acute process. Electronically signed by: Presley Enriquez M.D. 11/18/2016 3:40 PM Dictated Date/Time: 11/18/2016 3:39 PM
--- NOTE | 2016-11-18 15:54 | DIAGNOSTIC IMAGING REPORT ---
HEAD CT NONCONTRAST CT DOSE: 614.27 mGy.cm HISTORY: Mental status change EVALUATE FOR PSYCH CLEARANCE TECHNIQUE: Multiaxial CT images of the head were performed without the use of intravenous contrast. Comparison: 07/18/2016 Findings: The paranasal sinuses and mastoid air cells are clear. Chronic small vessel change of the periventricular deep white matter regions. Ventricular system is midline. No evidence for acute intracranial hemorrhage. No midline shift. Impression: Chronic and age-related change. No acute process. Electronically signed by: Presley Enriquez M.D. 11/18/2016 3:52 PM Dictated Date/Time: 11/18/2016 3:51 PM
[2016-11-18] MEDS ORDERED: ATOR-24 PO (16:19)
[2016-11-18] MEDS ORDERED: CLOP1TAB15 PO (16:19)
[2016-11-18 16:28] LABS: BASO % 0.1 %; BASO ABS # 0.02 K/uL (0-0.2); COMPLETE YES; EOS % 0.1 %; HEMATOCRIT 43.5 % (42-52); IG% 0.2 %; LYMPH % 3.5 %; LYMPH ABS # 0.57 K/uL (1.2-3.4); MEAN CELL VOLUME 91.4 fL (80-100); MEAN CORPUSCULAR HEMOGLOBIN 31.3 pg (25-34); MEAN CORPUSCULAR HGB CONC 34.3 g/dl (32-36); MEAN PLATELET VOLUME 10.3 fL (7.4-10.4); MONO % 9.6 %; NEUT % 86.5 %; PLATELET COUNT 316 K/uL (130-400); RED BLOOD COUNT 4.76 M/uL (4.7-6.1)
[2016-11-18 16:38] LABS: ALT/SGPT 44 U/L (12-78); AST/SGOT 44 U/L (15-37); BLOOD UREA NITROGEN 16 mg/dl (7-18); BUN/CREATININE RATIO 13.3 (10-20); CALCIUM 8.7 mg/dl (8.5-10.1); CARBON DIOXIDE 21 mmol/L (21-32); CHLORIDE 103 mmol/L (98-107); GLUCOSE 121 mg/dl (70-99); POTASSIUM 3.7 mmol/L (3.5-5.1); SODIUM 138 mmol/L (136-145)
[2016-11-18 16:49] LABS: ALKALINE PHOSPHATASE 271 U/L (45-117)
[2016-11-18] MEDS ORDERED: ASPIRIN 81 MG CHEW PO STA (17:05)
[2016-11-18] MEDS ORDERED: SODIUM CHLORIDE 0.9% 1000ML 1,000 ML IV STA (17:05)
[2016-11-18 17:12] LABS: URINE APPEARANCE CLEAR (CLEAR); URINE BILIRUBIN NEG (NEG); URINE COLOR YELLOW; URINE NITRITE NEG (NEG); URINE SPECIFIC GRAVITY 1.022 (1.000-1.030); UROBILINOGEN NEG (NEG); ZZURINE CULT IF INDIC CATH NO
[2016-11-18 17:14] LABS: MANUAL MICROSCOPIC REQUIRED? NO; REVIEW REQ? NO
[2016-11-18 17:37] LABS: BENZODIAZEPINE, URINE NEG (NEG); COCAINE,URINE NEG (NEG); PHENCYCLIDINE, URINE NEG (NEG)
--- NOTE | 2016-11-18 18:32 | DIAGNOSTIC IMAGING REPORT ---
LEFT SHOULDER MIN 2 VIEWS ROUTINE CLINICAL HISTORY: Left shoulder pain. COMPARISON: Left shoulder radiographs December 20, 2014. FINDINGS: Alignment of the left shoulder is anatomic. There is no acute fracture. 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 IMPRESSION: No acute fracture or dislocation of the left shoulder. Electronically signed by: Sam Patrick M.D. 11/18/2016 6:31 PM Dictated Date/Time: 11/18/2016 6:30 PM
[2016-11-18] MEDS ORDERED: NITROGLYCERIN 0.4 MG SL PER TAB CHARGE SL PRN (19:45)
[2016-11-18] MEDS ORDERED: ACETAMINOPHEN IV 100 ML IV PRN (19:45)
[2016-11-18] MEDS ORDERED: ONDANSETRON INJ 2 MG/ML 2 ML VIAL IV PRN (19:45)
--- NOTE | 2016-11-18 20:47 | DIAGNOSTIC IMAGING REPORT ---
LEFT WRIST MIN 3 VIEWS ROUTINE CLINICAL HISTORY: Left wrist pain, redness and swelling. COMPARISON: Left wrist radiographs September 27, 2006. FINDINGS: There is extensive vascular calcification. 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 There is severe joint space narrowing with osteophytosis of the left first carpometacarpal joint. There is no fracture or suspicious lesion. There is marked joint space narrowing of the radiocarpal articulation. IMPRESSION: 1. No acute fracture. 2. 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 Electronically signed by: Sam Patrick M.D. 11/18/2016 8:45 PM Dictated Date/Time: 11/18/2016 8:43 PM
--- NOTE | 2016-11-18 21:00 | DIAGNOSTIC IMAGING REPORT ---
ORBIT RADIOGRAPHS 3 VIEWS HISTORY: pre-MRI screening. COMPARISON: Head CT performed earlier today. FINDINGS: There are no radiopaque foreign bodies identified within the orbits. IMPRESSION: No radiopaque foreign bodies identified within the orbits. Electronically signed by: Sam Patrick M.D. 11/18/2016 8:59 PM Dictated Date/Time: 11/18/2016 8:59 PM
--- NOTE | 2016-11-18 21:01 | EMERGENCY ROOM VISIT NOTE ---
History Report prepared by Shabbiribrafa: Juwan Harrison Under the Supervision of: Dr. Preston Skaggs D.O. First contact with patient: 15:18 Chief Complaint: STROKE SYMPTOMS Stated Complaint: STROKE SYMPTOMS History of Present Illness The patient is a 89 year old male who presents to the Emergency Room with complaints of sudden stroke like symptoms that occurred prior to arrival. The patient is accompanied by his son who reports he has a history of back surgeries and is not able to ambulate without a walker. His son states that he had previously fallen in June due to dehydration. The patient states that he fell three days ago causing him contusions to his leg and shoulder. The patient' s son says that the patient was in the foyer on the ground when he found the patient. He reports that the patient is typically independent and lives with his granddaughter who last saw him this morning. The son states that when he arrived, the patient was experiencing dysphasia and confusion. The patient states that his left arm is weaker than his right and is unaware of when that started. The patient states that he knows he is in the hospital but is unaware of time. He also complains of lower left back pain. Source of History: patient, family (son) Onset: prior to arrival Position: other (global) Quality: other (weakness) Timing: other (sudden) Associated Symptoms: + back pain, + weakness Review of Systems See HPI for pertinent positives & negatives. A total of 10 systems reviewed and were otherwise negative. Past Medical & Surgical Medical Problems: (1) CVA (cerebral vascular accident) (2) Fall (3) Neuropathy (4) Weakness Surgical Problems: (1) S/P lumbar spinal fusion Social History Smoking Status: Unknown if Ever Smoked Alcohol Use: occasionally Housing Status: lives with family Occupation Status: retired Current/Historical Medications Scheduled Atorvastatin (Lipitor), 40 MG PO QPM Clopidogrel (Plavix), 75 MG PO QAM Levetiracetam (Keppra), 500 MG PO BID Allergies Coded Allergies: Sulfa Antibiotics (Verified Allergy, Unknown, "SULFA DRUGS": UNKNOWN, 11/18) Physical Exam Vital Signs Date Time Temp Pulse Resp B/P (MAP) Pulse Ox O2 Delivery O2 Flow Rate FiO2 11/18/16 20:31 97 18 130/50 98 11/18/16 19:28 107 11/18/16 19:19 91 15 122/78 96 Room Air 11/18/16 18:15 97 18 152/83 97 Room Air 11/18/16 16:51 99 18 138/64 96 Room Air 11/18/16 15:30 98 18 102/39 96 Room Air 11/18/16 15:25 101 11/18/16 15:09 36.5 96 16 146/86 96 Room Air Physical Exam GENERAL: Sitting up in bed, leaning to left, chronically ill appearing, alert EYE EXAM: normal conjunctiva, PERRL and EOM's intact OROPHARYNX: no exudate, no erythema, lips, buccal mucosa, and tongue normal and mucous membranes are moist NECK: supple, no nuchal rigidity, no adenopathy, non-tender LUNGS: Clear to auscultation. Normal chest wall mechanics HEART: no murmurs, S1 normal and S2 normal ABDOMEN: abdomen soft, non-tender, normo-active bowel sounds, no masses, no rebound or guarding. BACK: Back is symmetrical on inspection and there is no deformity, no midline tenderness, no CVA tenderness. SKIN: no rashes and no bruising UPPER EXTREMITIES: upper extremities are grossly normal. LOWER EXTREMITIES: No pitting edema. NEURO EXAM: Awake, Alert, oriented to person, place, but not time. Mild weakness to upper left extremity with flexion/extension/grasp and left leg weakness with flexion of the hip. cranial nerves II-XII intact, normal speech, No drift. Finger to nose intact. Medical Decision & Procedures ER Provider Diagnostic Interpretation: Radiology results as stated below per my review and the radiologist's interpretation: HEAD CT NONCONTRAST CT DOSE: 614.27 mGy.cm HISTORY: Mental status change EVALUATE FOR PSYCH CLEARANCE TECHNIQUE: Multiaxial CT images of the head were performed without the use of intravenous contrast. Comparison: 07/18/2016 Findings: The paranasal sinuses and mastoid air cells are clear. Chronic small vessel change of the periventricular deep white matter regions. Ventricular system is midline. No evidence for acute intracranial hemorrhage. No midline shift. Impression: Chronic and age-related change. No acute process. Electronically signed by: Presley Enriquez M.D. 11/18/2016 3:52 PM Dictated Date/Time: 11/18/2016 3:51 PM CHEST ONE VIEW PORTABLE CLINICAL HISTORY: Mood Disorder mental status change COMPARISON STUDY: 06/25/2015 FINDINGS: Mild stable cardia megaly. Lungs are clear. Diaphragms are smooth. IMPRESSION: No acute process. Electronically signed by: Presley Enriquez M.D. 11/18/2016 3:40 PM Dictated Date/Time: 11/18/2016 3:39 PM Laboratory Results 11/18/16 15:25 Red Blood Count 4.76, Mean Corpuscular Volume 91.4, Mean Corpuscular Hemoglobin 31.3, Mean Corpuscular Hemoglobin Concent 34.3, Mean Platelet Volume 10.3, Neutrophils (%) (Auto) 86.5, Lymphocytes (%) (Auto) 3.5, Monocytes (%) (Auto) 9.6, Eosinophils (%) (Auto) 0.1, Basophils (%) (Auto) 0.1, Neutrophils # (Auto) 14.09, Lymphocytes # (Auto) 0.57, Monocytes # (Auto) 1.57, Eosinophils # (Auto) 0.02, Basophils # (Auto) 0.02 11/18/16 15:25 Test 11/18/16 00:00 11/18/16 15:19 11/18/16 15:25 11/18/16 16:17 Urine Color YELLOW Urine Appearance CLEAR (CLEAR) Urine pH 5.0 (4.5-7.5) Urine Specific [place] 1.022 (1.000-1.030) Urine Protein NEG (NEG) Urine Glucose (UA) NEG (NEG) Urine Ketones 1+ (NEG) Urine Occult Blood 1+ (NEG) Urine Nitrite NEG (NEG) Urine Bilirubin NEG (NEG) Urine Urobilinogen NEG (NEG) Urine Leukocyte Esterase NEG (NEG) Urine WBC (Auto) 1-5 /hpf (0-5) Urine RBC (Auto) 5-10 /hpf (0-4) Urine Hyaline Casts (Auto) 1-5 /lpf (0-5) Urine Epithelial Cells (Auto) 5-10 /lpf (0-5) Urine Bacteria (Auto) NEG (NEG) Urine Opiates Screen NEG (NEG) Urine Methadone, Qualitative NEG (NEG) Urine Barbiturates NEG (NEG) Urine Phencyclidine (PCP) Level NEG (NEG) Ur Amphetamine/Methamphetamine NEG (NEG) MDMA (Ecstasy) Screen NEG (NEG) Urine Benzodiazepines Screen NEG (NEG) Urine Cocaine Metabolite NEG (NEG) Urine Marijuana (THC) NEG (NEG) Bedside Glucose 99 mg/dl (70-99) White Blood Count 16.30 K/uL (4.8-10.8) Red Blood Count 4.76 M/uL (4.7-6.1) Hemoglobin 14.9 g/dL (14.0-18.0) Hematocrit 43.5 % (42-52) Mean Corpuscular Volume 91.4 fL (80-100) Mean Corpuscular Hemoglobin 31.3 pg (25-34) Mean Corpuscular Hemoglobin Concent 34.3 g/dl (32-36) Platelet Count 316 K/uL (130-400) Mean Platelet Volume 10.3 fL (7.4-10.4) Neutrophils (%) (Auto) 86.5 % Lymphocytes (%) (Auto) 3.5 % Monocytes (%) (Auto) 9.6 % Eosinophils (%) (Auto) 0.1 % Basophils (%) (Auto) 0.1 % Neutrophils # (Auto) 14.09 K/uL (1.4-6.5) Lymphocytes # (Auto) 0.57 K/uL (1.2-3.4) Monocytes # (Auto) 1.57 K/uL (0.11-0.59) Eosinophils # (Auto) 0.02 K/uL (0-0.5) Basophils # (Auto) 0.02 K/uL (0-0.2) RDW Standard Deviation 49.0 fL (36.4-46.3) RDW Coefficient of Variation 14.6 % (11.5-14.5) Immature Granulocyte % (Auto) 0.2 % Immature Granulocyte # (Auto) 0.03 K/uL (0.00-0.02) Anion Gap 14.0 mmol/L (3-11) Estimated GFR () 61.8 Estimated GFR (Non- 53.3 BUN/Creatinine Ratio 13.3 (10-20) Uric Acid 6.5 mg/dl (2.6-7.2) Calcium Level 8.7 mg/dl (8.5-10.1) Total Bilirubin 1.4 mg/dl (0.2-1) Direct Bilirubin 0.3 mg/dl (0-0.2) Aspartate Amino Transf (AST/SGOT) 44 U/L (15-37) Alanine Aminotransferase (ALT/SGPT) 44 U/L (12-78) Alkaline Phosphatase 271 U/L (45-117) Total Protein 7.8 gm/dl (6.4-8.2) Albumin 3.7 gm/dl (3.4-5.0) Thyroid Stimulating Hormone (TSH) 2.720 uIu/ml (0.300-4.500) Ethyl Alcohol mg/dL < 3.0 mg/dl (0-3) Laboratory results per my review. Medications Administered Medications (Trade) Dose Ordered Sig/Sylvie Route Start Time Stop Time Status Last Admin Dose Admin Sodium Chloride 1,000 ml @ 999 mls/hr Q1H1M STAT IV 11/18/16 17:05 11/18/16 18:05 DC 11/18/16 17:15 999 MLS/HR Aspirin (Aspirin Chew) 324 mg NOW STAT PO 11/18/16 17:05 11/18/16 17:06 DC 11/18/16 17:14 324 MG ECG Indication: other (stroke like symptoms) Rate (beats per minute): 101 Rhythm: sinus tachycardia Findings: left axis deviation, no ectopy, other (septal q wave) ED Course ED COURSE: Vital signs were reviewed and showed tachycardia The patients medical record was reviewed The above diagnostic studies were performed and reviewed. ED treatments and interventions as stated above. Medication Reconciliation: I attest that I have personally reviewed the patient' s current medication list. 1520: The patient was evaluated in room B03. A complete history and physical examination was performed. 1705: Aspirin 324 mg PO, Sodium Chloride 1000 ml @ 999 mls/hr IV. 1730: I discussed the patient's case with Dr. Aiken, [facility] Hospitalist. He understands the patient's conditions and agrees to accept the patient. The patient will be further evaluated. Medical Decision Differential Diagnosis includes but is not limited to ischemic Stroke, hemorrhagic stroke, bells palsy, mass, neoplasm, migraine headache, seizure, subarachnoid hemorrhage, TIA, and transient global amnesia. Patient is a 89-year-old male who presents the ER for slurred speech associated with left extremity weakness. Patient was found down on the ground his last known normal being last night prior to bed. Patient is a fairly poor historian. Labs were remarkable for mild leukocytosis of 16,000, BMP along with LFTs being unremarkable. Bilirubin was slightly elevated 1.4. Tox was negative. Alcohol was negative. UA was negative. CT head was negative. Patient was updated in regards to his findings. He was given fluids and aspirin. He was admitted to internal medicine for a stroke. Consults Time Called: 1729 Consulting Physician: Dr. Aiken Returned Call: [phone] I discussed the patient's case with Dr. Aiken, [facility] Hospitalist. He understands the patient's conditions and agrees to accept the patient. The patient will be further evaluated. Impression Primary Impression: CVA (cerebral vascular accident) Additional Impressions: LUE weakness Altered mental status Scribe Attestation The scribe's documentation has been prepared under my direction and personally reviewed by me in its entirety. I confirm that the note above accurately reflects all work, treatment, procedures, and medical decision making performed by me. Departure Information Dispostion Being Evaluated By Hospitalist (Dr. Aiken) Referrals RV. Whatley MD (PCP) Patient Instructions My [facility] Stroke History Time Last Known Well unknown Stroke t-PA Criteria Reviewed Does NOT meet criteria for t-PA Reason t-PA Not Given Treatment not indicated Problem Qualifiers Primary Impression: CVA (cerebral vascular accident) CVA mechanism: unspecified Qualified Codes: I63.9 - Cerebral infarction, unspecified Additional Impressions: Altered mental status Altered mental status type: unspecified Qualified Codes: R41.82 - Altered mental status, unspecified
[2016-11-18 22:43] VITALS: BP 136/79; PULSE 89; TEMP 36.6; O2SAT 93; Ht 162.6 cm; Wt 66.0 kg
--- NOTE | 2016-11-18 22:58 | History and Physical ---
History & Physical Date & Time of Service: Nov 18, 2016 at 22:44 Chief Complaint: Stroke Symptoms Primary Care Physician: RV. Whatley MD History of Present Illness Source: patient, family The patient is an 89-year-old male, who lives with his granddaughter, who had seen him at 10 PM last evening and reportedly was normal. She left the house at 10:00 this morning, and he was still asleep, which is not unusual. His son went to check on the patient at 11 AM and found that he was on the floor on his left side, somewhat confused and having difficulty speaking. The patient himself is somewhat confused, so history of present illness is primarily obtained through the son who is present during examination. There is complaint primarily of left shoulder and arm discomfort, there is improving slurred speech , and he has been having intermittent hallucinations. The patient has had ongoing left leg weakness due to history of lumbar disc disease in the past. He was noted to have bruises on his left shoulder and left side. His son reports she's had decreased ability to ambulate recently including with his walker, which he has attributed to chronic low back pain and left leg weakness, with the addition of generalized weakness recently. The patient was most recently in hospital from July 18 through July 21, when he was diagnosed with having a fall secondary to generalized weakness associated with dehydration, and was discharged to a custodial facility at that time for rehabilitation. Past Medical/Surgical History Medical Problems: (1) Neuropathy Status: Chronic Surgical Problems: (1) S/P lumbar spinal fusion Status: Resolved Social History Smoking Status: Unknown if Ever Smoked Smokeless Tobacco Use: No Alcohol Use: none Drug Use: none Marital Status: Housing status: lives with family Occupational Status: retired Immunizations History of Influenza Vaccine: Yes Influenza Vaccine Date: May 29, 2006 History of Tetanus Vaccine?: Yes Tetanus Immunization Date: Sep 27, 2006 History of Pneumococcal: Yes History of Hepatitis B Vaccine: No Multi-Drug Resistant Organisms History of MDRO: No Allergies Coded Allergies: Sulfa Antibiotics (Verified Allergy, Unknown, "SULFA DRUGS": UNKNOWN, 11/18) Home Medications Scheduled Atorvastatin (Lipitor), 40 MG PO QPM Clopidogrel (Plavix), 75 MG PO QAM Levetiracetam (Keppra), 500 MG PO BID Review of Systems Review of systems is limited due to patient's altered mental status, and is as above in the history of present illness as noted from his son. Physical Exam Vital Signs Date Time Temp Pulse Resp B/P (MAP) Pulse Ox O2 Delivery O2 Flow Rate FiO2 11/18/16 20:31 97 18 130/50 98 11/18/16 19:28 107 11/18/16 19:19 91 15 122/78 96 Room Air 11/18/16 18:15 97 18 152/83 97 Room Air 11/18/16 16:51 99 18 138/64 96 Room Air 11/18/16 15:30 98 18 102/39 96 Room Air 11/18/16 15:25 101 11/18/16 15:09 36.5 96 16 146/86 96 Room Air The patient is awake, and oriented 2, normocephalic and atraumatic, lying in bed and in no acute distress. HEENT--PERRL, EOMI, mucous membranes and oropharynx dry. Neck--supple, no JVD or bruits, thyroid normal, trachea midline, no adenopathy. Heart--normal S1 and S2, no extra beats, no murmurs, rubs or gallops. Lungs--clear bilaterally but diminished throughout, no respiratory distress, no accessory muscle use. Abdomen--normal bowel sounds and soft, nontender and nondistended, no hernias or masses, no organomegaly. Extremities--no cyanosis, clubbing. There is trace bilateral pretibial pitting Edema. There are good distal pulses b/l. Dermatologic--normal skin turgor, normal color, warm and dry, no abnormal lymph nodes, no rash. Neurologic--cranial nerves II through XII grossly intact. Rheumatologic--normal range of motion, nontender, muscles and joints for age, except for left shoulder and left elbow and wrist. Psychiatric--normal affect. Diagnostics Laboratory Results Results Past 24 Hours Test 11/18/16 00:00 11/18/16 15:19 11/18/16 15:25 11/18/16 16:17 Range/Units Urine Color YELLOW Urine Appearance CLEAR CLEAR Urine pH 5.0 4.5-7.5 Urine Specific [place] 1.022 1.000-1.030 Urine Protein NEG NEG Urine Glucose (UA) NEG NEG Urine Ketones 1+ NEG Urine Occult Blood 1+ NEG Urine Nitrite NEG NEG Urine Bilirubin NEG NEG Urine Urobilinogen NEG NEG Urine Leukocyte Esterase NEG NEG Urine WBC (Auto) 1-5 0-5 /hpf Urine RBC (Auto) 5-10 0-4 /hpf Urine Hyaline Casts (Auto) 1-5 0-5 /lpf Urine Epithelial Cells (Auto) 5-10 0-5 /lpf Urine Bacteria (Auto) NEG NEG Urine Opiates Screen NEG NEG Urine Methadone, Qualitative NEG NEG Urine Barbiturates NEG NEG Urine Phencyclidine (PCP) Level NEG NEG Ur Amphetamine/Methamphetamine NEG NEG MDMA (Ecstasy) Screen NEG NEG Urine Benzodiazepines Screen NEG NEG Urine Cocaine Metabolite NEG NEG Urine Marijuana (THC) NEG NEG Bedside Glucose 99 70-99 mg/dl White Blood Count 16.30 4.8-10.8 K/uL Red Blood Count 4.76 4.7-6.1 M/uL Hemoglobin 14.9 14.0-18.0 g/dL Hematocrit 43.5 42-52 % Mean Corpuscular Volume 91.4 80-100 fL Mean Corpuscular Hemoglobin 31.3 25-34 pg Mean Corpuscular Hemoglobin Concent 34.3 32-36 g/dl Platelet Count 316 130-400 K/uL Mean Platelet Volume 10.3 7.4-10.4 fL Neutrophils (%) (Auto) 86.5 % Lymphocytes (%) (Auto) 3.5 % Monocytes (%) (Auto) 9.6 % Eosinophils (%) (Auto) 0.1 % Basophils (%) (Auto) 0.1 % Neutrophils # (Auto) 14.09 1.4-6.5 K/uL Lymphocytes # (Auto) 0.57 1.2-3.4 K/uL Monocytes # (Auto) 1.57 0.11-0.59 K/uL Eosinophils # (Auto) 0.02 0-0.5 K/uL Basophils # (Auto) 0.02 0-0.2 K/uL RDW Standard Deviation 49.0 36.4-46.3 fL RDW Coefficient of Variation 14.6 11.5-14.5 % Immature Granulocyte % (Auto) 0.2 % Immature Granulocyte # (Auto) 0.03 0.00-0.02 K/uL Sodium Level 138 136-145 mmol/L Potassium Level 3.7 3.5-5.1 mmol/L Chloride Level 103 98-107 mmol/L Carbon Dioxide Level 21 21-32 mmol/L Anion Gap 14.0 3-11 mmol/L Blood Urea Nitrogen 16 7-18 mg/dl Creatinine 1.20 0.60-1.40 mg/dl Estimated GFR () 61.8 Estimated GFR (Non- 53.3 BUN/Creatinine Ratio 13.3 10-20 Random Glucose 121 70-99 mg/dl Uric Acid 6.5 2.6-7.2 mg/dl Calcium Level 8.7 8.5-10.1 mg/dl Total Bilirubin 1.4 0.2-1 mg/dl Direct Bilirubin 0.3 0-0.2 mg/dl Aspartate Amino Transf (AST/SGOT) 44 15-37 U/L Alanine Aminotransferase (ALT/SGPT) 44 12-78 U/L Alkaline Phosphatase 271 45-117 U/L Total Protein 7.8 6.4-8.2 gm/dl Albumin 3.7 3.4-5.0 gm/dl Thyroid Stimulating Hormone (TSH) 2.720 0.300-4.500 uIu/ml Ethyl Alcohol mg/dL < 3.0 0-3 mg/dl Diagnostic Radiology Patient Name: SHAN SOLITARIO Unit Number: [id number] Dictated: 11/18/161550 Transcribed: 11/18/161550 MS Printed Date/Time: [~ rep prt dt]/[~ rep prt tm] [~ rep ct labl] - [~ rep ct ivnm] [facility] [place] [address] Dictated: 11/18/161550 Transcribed: 11/18/161550 MS Printed Date/Time: [~ rep prt dt]/[~ rep prt tm] [~ rep ct labl] - [~ rep ct ivnm] HEAD CT NONCONTRAST CT DOSE: 614.27 mGy.cm HISTORY: Mental status change EVALUATE FOR PSYCH CLEARANCE TECHNIQUE: Multiaxial CT images of the head were performed without the use of intravenous contrast. Comparison: 07/18/2016 Findings: The paranasal sinuses and mastoid air cells are clear. Chronic small vessel change of the periventricular deep white matter regions. Ventricular system is midline. No evidence for acute intracranial hemorrhage. No midline shift. Impression: Chronic and age-related change. No acute process. Electronically signed by: Presley Enriquez M.D. 11/18/2016 3:52 PM Dictated Date/Time: 11/18/2016 3:51 PM The status of this report is Signed. Draft = Not yet reviewed or approved by Radiologist. Signed = Reviewed and approved by Radiologist. <AttendingPhy></AttendingPhy> <FamilyPhy>RV. Whatley MD</ FamilyPhy> <PrimaryPhy>RV. Whatley MD</PrimaryPhy> <UnitNumber> [id number]</UnitNumber> <VisitNumber>[id number]</VisitNumber> <PatientName> SHAN SOLITARIO</PatientName> <DateOfBirth>1925</DateOfBirth> <Location> C.EDB</Location> <ServiceDate>11/18/16</ServiceDate> <MNE>ESINDI</MNE> < OrderingPhy>Preston Skaggs DO</OrderingPhy> <OrderingPhyMNE>f rep ord dr martinez</ OrderingPhyMNE> <DictatingPhyMNE>f rep dict dr martinez</DictatingPhyMNE> <CCListMNE> f rep ct mne</CCListMNE> <AdmittingPhyMNE>f pt admit dr martinez</AdmittingPhyMNE> < AttendingPhyMNE>f pt attend dr martinez</AttendingPhyMNE> <ConsultingPhyMNE>f pt consult dr martinez</ConsultingPhyMNE> <FamilyPhyMNE>f pt fam dr martinez</FamilyPhyMNE> <OtherPhyMNE>f pt other dr martinez</OtherPhyMNE> < PrimaryPhyMNE>f pt prim care dr martinez</PrimaryPhyMNE> <ReferringPhyMNE>f pt referring dr martinez</ReferringPhyMNE> Patient Name: SHAN SOLITARIO Unit Number: [id number] Dictated: 11/18/16 1539 Transcribed: 11/18/16 1539 MS Printed Date/Time: [~ rep prt dt]/[~ rep prt tm] [~ rep ct labl] - [~ rep ct ivnm] [facility] [place] [address] Dictated: 11/18/16 1539 Transcribed: 11/18/16 1539 MS Printed Date/Time: [~ rep prt dt]/[~ rep prt tm] [~ rep ct labl] - [~ rep ct ivnm] CHEST ONE VIEW PORTABLE CLINICAL HISTORY: Mood Disorder mental status change COMPARISON STUDY: 06/25/2015 FINDINGS: Mild stable cardia megaly. Lungs are clear. Diaphragms are smooth. IMPRESSION: No acute process. Electronically signed by: Presley Enriquez M.D. 11/18/2016 3:40 PM Dictated Date/Time: 11/18/2016 3:39 PM The status of this report is Signed. Draft = Not yet reviewed or approved by Radiologist. Signed = Reviewed and approved by Radiologist. <AttendingPhy></AttendingPhy> <FamilyPhy>RV. Whatley MD</ FamilyPhy> <PrimaryPhy>RV. Whatley MD</PrimaryPhy> <UnitNumber> [id number]</UnitNumber> <VisitNumber>[id number]</VisitNumber> <PatientName> SHAN SOLITARIO</PatientName> <DateOfBirth>1925</DateOfBirth> <Location> C.EDB</Location> <ServiceDate>11/18/16</ServiceDate> <MNE>ESINDI</MNE> < OrderingPhy>Preston Skaggs DO</OrderingPhy> <OrderingPhyMNE>f rep ord dr martinez</ OrderingPhyMNE> <DictatingPhyMNE>f rep dict dr martinez</DictatingPhyMNE> <CCListMNE> f rep ct doce</CCListMNE> <AdmittingPhyMNE>f pt admit dr martinez</AdmittingPhyMNE> < AttendingPhyMNE>f pt attend dr martinez</AttendingPhyMNE> <ConsultingPhyMNE>f pt consult dr martinez</ConsultingPhyMNE> <FamilyPhyMNE>f pt fam dr martinez</FamilyPhyMNE> <OtherPhyMNE>f pt other dr martinez</OtherPhyMNE> < PrimaryPhyMNE>f pt prim care dr martinez</PrimaryPhyMNE> <ReferringPhyMNE>f pt referring dr martinez</ReferringPhyMNE> Patient Name: SHAN SOLITARIO Unit Number: [id number] Dictated: 11/18/161829 Transcribed: 11/18/161829 JA Printed Date/Time: [~ rep prt dt]/[~ rep prt tm] [~ rep ct labl] - [~ rep ct ivnm] [facility] [place] [address] Dictated: 11/18/161829 Transcribed: 11/18/161829 JA Printed Date/Time: [~ rep prt dt]/[~ rep prt tm] [~ rep ct labl] - [~ rep ct ivnm] LEFT SHOULDER MIN 2 VIEWS ROUTINE CLINICAL HISTORY: Left shoulder pain. COMPARISON: Left shoulder radiographs December 20, 2014. FINDINGS: Alignment of the left shoulder is anatomic. There is no acute fracture. 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 IMPRESSION: No acute fracture or dislocation of the left shoulder. Electronically signed by: Sam Patrick M.D. 11/18/2016 6:31 PM Dictated Date/Time: 11/18/2016 6:30 PM The status of this report is Signed. Draft = Not yet reviewed or approved by Radiologist. Signed = Reviewed and approved by Radiologist. <AttendingPhy></AttendingPhy> <FamilyPhy>RV. Whatley MD</ FamilyPhy> <PrimaryPhy>RV. Whatley MD</PrimaryPhy> <UnitNumber> [id number]</UnitNumber> <VisitNumber>[id number]</VisitNumber> <PatientName> SHAN SOLITARIO</PatientName> <DateOfBirth>1925</DateOfBirth> <Location> [facility]</Location> <ServiceDate>11/18/16</ServiceDate> <MNE>ESINDI</MNE> < OrderingPhy>Preston Skaggs DO</OrderingPhy> <OrderingPhyMNE>f rep ord dr martinez</ OrderingPhyMNE> <DictatingPhyMNE>f rep dict dr martinez</DictatingPhyMNE> <CCListMNE> f rep ct mne</CCListMNE> <AdmittingPhyMNE>f pt admit dr martinez</AdmittingPhyMNE> < AttendingPhyMNE>f pt attend dr martinez</AttendingPhyMNE> <ConsultingPhyMNE>f pt consult dr martinez</ConsultingPhyMNE> <FamilyPhyMNE>f pt fam dr martinez</FamilyPhyMNE> <OtherPhyMNE>f pt other dr martinez</OtherPhyMNE> < PrimaryPhyMNE>f pt prim care dr martinez</PrimaryPhyMNE> <ReferringPhyMNE>f pt referring dr martinez</ReferringPhyMNE> Patient Name: SHAN SOLITARIO Unit Number: [id number] Dictated: 11/18/162042 Transcribed: 11/18/162042 HIMANSHU Printed Date/Time: [~ rep prt dt]/[~ rep prt tm] [~ rep ct labl] - [~ rep ct ivnm] [facility] [place] [address] Dictated: 11/18/162042 Transcribed: 11/18/162042 JA Printed Date/Time: [~ rep prt dt]/[~ rep prt tm] [~ rep ct labl] - [~ rep ct ivnm] LEFT WRIST MIN 3 VIEWS ROUTINE CLINICAL HISTORY: Left wrist pain, redness and swelling. COMPARISON: Left wrist radiographs September 27, 2006. FINDINGS: There is extensive vascular calcification. 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 There is severe joint space narrowing with osteophytosis of the left first carpometacarpal joint. There is no fracture or suspicious lesion. There is marked joint space narrowing of the radiocarpal articulation. IMPRESSION: 1. No acute fracture. 2. 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 Electronically signed by: Sam Patrick M.D. 11/18/2016 8:45 PM Dictated Date/Time: 11/18/2016 8:43 PM The status of this report is Signed. Draft = Not yet reviewed or approved by Radiologist. Signed = Reviewed and approved by Radiologist. <AttendingPhy></AttendingPhy> <FamilyPhy>RV. Whatley MD</ FamilyPhy> <PrimaryPhy>RV. Whatley MD</PrimaryPhy> <UnitNumber> [id number]</UnitNumber> <VisitNumber>[id number]</VisitNumber> <PatientName> SHAN SOLITARIO</PatientName> <DateOfBirth>1925</DateOfBirth> <Location> C.EDB</Location> <ServiceDate>11/18/16</ServiceDate> <MNE>ESINDI</MNE> < OrderingPhy>Ronald Simon M.D.</OrderingPhy> <OrderingPhyMNE>f rep ord dr martinez</OrderingPhyMNE> <DictatingPhyMNE>f rep dict dr martinez</DictatingPhyMNE> < CCListMNE>f rep ct mne</CCListMNE> <AdmittingPhyMNE>f pt admit dr martinez</ AdmittingPhyMNE> <AttendingPhyMNE>f pt attend dr martinez</AttendingPhyMNE> <ConsultingPhyMNE>f pt consult dr martinez</ConsultingPhyMNE> <FamilyPhyMNE>f pt fam dr martinez</FamilyPhyMNE> <OtherPhyMNE>f pt other dr martinez</OtherPhyMNE> < PrimaryPhyMNE>f pt prim care dr martinez</PrimaryPhyMNE> <ReferringPhyMNE>f pt referring dr martinez</ReferringPhyMNE> EKG EKG shows sinus tachycardia at 101 bpm, left axis deviation, no acute ST-T changes. Impression Assessment and Plan Status post fall/chronic left-sided weakness with possible worsening/confusion/ hallucinations-- the patient be admitted to the telemetry unit for serial cardiac enzymes, cardiac rhythm monitoring and a 2-D echocardiogram with Dopplers. He was observed to have intermittent PVCs and ventricular bigeminy while in the ED. We'll order an MRI of the brain combo, MRA of the head without contrast, an MRA neck combo. We'll consult PT/OT and social welfare research worker. Continue Plavix 75 mg by mouth every morning, and add aspirin 81 mg chewable daily. Hypercholesterolemia--continue atorvastatin 40 mg by mouth every afternoon. Status post lumbar fusion/chronic left lower extremity weakness/ametropia dysfunction--consult PT and OT as noted above. CPPD/severe left wrist arthritis--add Voltaren gel 4 times a day when necessary. Level of Care Telemetry Advanced Directives Existing Advance Directive: No Existing Living Will: No Existing Power of [employer] Farmworker: No Resuscitation Status FULL RESUSCITATION VTE Prophylaxis VTE Risk Assessment Done? Y/N: Yes Risk Level: Moderate Given or contraindicated: SCD's
[2016-11-18] MEDS ORDERED: DICLOFENAC SOD 1% GEL 100 GM TUBE EXT PRN (23:00)
[2016-11-18] MEDS ORDERED: GADAVIST IV PRN (23:15)
[2016-11-18] MEDS: ATORVASTATIN 20 MG TAB PO SCH (23:31)
[2016-11-18] MEDS: LEVETIRACETAM 500 MG TAB PO SCH (23:31)
[2016-11-18] MEDS: ACETAMINOPHEN 325 MG TAB PO PRN (23:32)
[2016-11-18 23:43] VITALS: BP 117/72; PULSE 80; TEMP 37.1; O2SAT 96
[2016-11-19] VITALS (8 sets, daily range): BP systolic 92–126; BP diastolic 55–78; PULSE 63–104; TEMP 36.6–36.9; O2SAT 93–97
[2016-11-19 04:15] LABS: BUN/CREATININE RATIO 20.5 (10-20); CREATININE 0.74 mg/dl (0.60-1.40); MAGNESIUM 2.2 mg/dl (1.8-2.4); POTASSIUM 3.6 mmol/L (3.5-5.1)
[2016-11-19 04:38] LABS: BASO % 0.3 %; BASO ABS # 0.03 K/uL (0-0.2); COMPLETE YES; HEMATOCRIT 35.3 % (42-52); IG% 0.2 %; LYMPH % 11.3 %; LYMPH ABS # 1.13 K/uL (1.2-3.4); MEAN CELL VOLUME 90.7 fL (80-100); MEAN CORPUSCULAR HEMOGLOBIN 30.8 pg (25-34); MEAN PLATELET VOLUME 9.8 fL (7.4-10.4); MONO % 11.7 %; NEUT % 74.5 %; PLATELET COUNT 238 K/uL (130-400); RED BLOOD COUNT 3.89 M/uL (4.7-6.1); WHITE BLOOD COUNT 9.99 K/uL (4.8-10.8)
--- NOTE | 2016-11-19 06:33 | DIAGNOSTIC IMAGING REPORT ---
MRI OF THE BRAIN WITHOUT AND WITH IV CONTRAST SEIZURE PROTOCOL CLINICAL HISTORY: A mental status change COMPARISON STUDY: No previous studies for comparison. TECHNIQUE: Utilizing a 1.5 Kerrie magnet and dedicated coil, multiplanar, multiecho imaging of the brain was performed pre and postcontrast administration. IV administration of 8.5 mL of Gadavist contrast was uneventful. Thin cut coronal T2 imaging was performed according to seizure protocol. FINDINGS: No evidence for an acute ischemic event. Cerebellar as well as cerebral atrophy. Mild compensatory prominence of the ventricular system. Moderate chronic small vessel change of aging. No significant postcontrast enhancement. IMPRESSION: 1. Considerable cerebellar as well as cerebral atrophy. 2. Moderate chronic small vessel change. 3. No abnormal postcontrast enhancement. Electronically signed by: Presley Enriquez M.D. 11/19/2016 6:31 AM Dictated Date/Time: 11/19/2016 6:30 AM
--- NOTE | 2016-11-19 06:48 | DIAGNOSTIC IMAGING REPORT ---
MR ANGIOGRAPHY OF THE [place] OF [place] NO CONTRAST CLINICAL HISTORY: Stroke. Slurred speech. Disorientation. Senile dementia. COMPARISON STUDY: None. A 3-D [id number] MR angiographic sequence of the [place] of [place] was performed. Both the source and projection images were reviewed. There are no lesion suspicious for aneurysm. There is diminished flow involving the right middle cerebral artery territory. There is a stenosis involving the proximal left posterior cerebral artery. The right posterior cerebral artery is not visualized and possibly occluded. The distal left vertebral artery is poorly visualized suggesting slow flow. IMPRESSION: 1. No evidence of aneurysm 2. Poor visualization of the distal left vertebral artery suggesting diminished/slow flow 3. Possible occlusion of the right posterior cerebral artery 4. 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 Decreased caliber of the right middle cerebral artery branches. Electronically signed by: Rodney Green M.D. 11/19/2016 6:47 AM Dictated Date/Time: 11/19/2016 6:43 AM
--- NOTE | 2016-11-19 06:53 | DIAGNOSTIC IMAGING REPORT ---
NECK MRA HISTORY: Stroke. Slurred speech. Disorientation. Signal dimension. TECHNIQUE: [id number] and gadolinium-enhanced MRA of the neck was performed both before and after the intravenous administration of contrast. All measurements were calculated based on NASCET criteria. The study is performed during the administration of 6 cc of intravenous Gadavist. COMPARISON STUDY: None. FINDINGS: There is no evidence of hemodynamically significant left internal carotid artery stenosis. There is a 50% stenosis involving the right internal carotid artery origin. There is severe narrowing of the right external carotid artery origin. There is a high-grade stenosis involving the right vertebral artery origin. There is beading of the cervical portion the right vertebral artery without evidence of focal stenosis. There are multifocal high-grade stenotic lesions of the distal left vertebral artery. The proximal mid left vertebral artery are not visualized and may be hypoplastic or occluded. IMPRESSION: 1. 50% stenosis involving the origin the right internal carotid artery 2. High-grade stenosis involving the origin of the right external carotid artery 3. No evidence of hemodynamic significant left internal carotid artery stenosis 4. High-grade stenosis involving the left vertebral artery origin 5. Multifocal stenoses involving the distal left vertebral artery 6. Nonvisualization of the proximal mid left vertebral artery, suggesting hypoplasia or proximal occlusion Electronically signed by: Rodney Green M.D. 11/19/2016 6:52 AM Dictated Date/Time: 11/19/2016 6:47 AM
[2016-11-19] MEDS: ASPIRIN 81 MG ECTAB PO SCH (09:19)
[2016-11-19] MEDS: CLOPIDOGREL BISULFATE 75 MG TAB PO SCH (09:19)
[2016-11-19] MEDS: LEVETIRACETAM 500 MG TAB PO SCH ×2 (09:19→21:00)
[2016-11-19] MEDS ORDERED: PERFLUTREN LIPID MICROSPHERE (DEFINITY) IV ONE (09:57)
[2016-11-19] MEDS: BACITRACIN OINT 15 GM TUBE EXT SCH (13:00)
[2016-11-19] MEDS ORDERED: OXYB1TAB31 PO (13:47)
--- NOTE | 2016-11-19 13:50 | Hospitalist Progress Note ---
Hospitalist Progress Note Date of Service Nov 19, 2016. (Sravanthi Apodaca ., PA-C) Subjective Pt evaluation today including: conversation w/ patient, conversation w/ family (son at bedside), physical exam, chart review, lab review, review of studies, review of inpatient medication list Pain: None PO Intake: Tolerating PO diet Voiding: talavera catheter in place (condom catheter in place) Patient reports feeling well. He states that he does not recall his fall or how it happened. He is not sure if he had dizziness, chest pain or shortness of breath prior to fall and is not sure if he hit his head. It is uncertain how long he was out/on the ground for. Patient states that he has intermittent pain in his left shoulder and left wrist. He denies any pain in his left shoulder or wrist currently at rest. When the patient does come, it is very severe. He states that he's having trouble moving his left arm but does not think that he has any numbness or tingling. He states that his left side has been weak recently, even before falling on that side. The patient also complains of some intermittent pain over his left lateral ribs underneath his axilla, but denies any now. The patient denies fevers, chills, sweats, chest pain, palpitations, claudication, cough, wheezing, shortness of breath, nausea, vomiting, abdominal pain, dysuria, hematuria, urinary retention, paralysis, numbness and tingling. Additional Comments: See HPI for pertinent positives and negatives. All other systems reviewed and negative. (Sravanthi Apodaca ., PA-C) Objective Vital Signs Date Time Temp Pulse Resp B/P (MAP) Pulse Ox O2 Delivery O2 Flow Rate FiO2 11/19/16 11:29 36.9 63 20 113/71 (85) 97 Room Air 11/19/16 08:00 96 Room Air 11/19/16 07:51 36.6 104 22 92/55 (67) 96 Room Air 11/19/16 04:00 Room Air 11/19/16 03:18 36.9 89 20 104/59 (74) 93 Room Air 11/19/16 00:00 Room Air 11/18/16 23:43 37.1 80 18 117/72 (87) 96 Room Air 11/18/16 22:43 36.6 89 19 136/79 93 Room Air 11/18/16 20:31 97 18 130/50 98 11/18/16 19:28 107 11/18/16 19:19 91 15 122/78 96 Room Air 11/18/16 18:15 97 18 152/83 97 Room Air 11/18/16 16:51 99 18 138/64 96 Room Air 11/18/16 15:30 98 18 102/39 96 Room Air 11/18/16 15:25 101 11/18/16 15:09 36.5 96 16 146/86 96 Room Air (Sravanthi Apodaca ., PA-C) Physical Exam Notes: General appearance: Well-developed, well-nourished, no apparent distress Head: Normocephalic, atraumatic Eyes: Normal inspection, PERRL, EOMI ENT: Normal ENT inspection, hearing grossly normal, pharynx normal Neck: Supple, no JVD, trachea midline Respiratory/Chest: Lungs clear to auscultation, normal breath sounds, no respiratory distress Cardiovascular: Regular rate & rhythm, no gallop, no murmur Abdomen/GI: Normal bowel sounds, non-tender, soft Extremities/Musculoskeletal: +Superficial wounds/abrasions on lateral aspect of left leg. No calf tenderness, no pedal edema Neurological/Psych: +Disoriented to time. Bilateral motor weakness. LLE 1/5, RLE 1/5 although slightly better than left side. LUE 2/5, RUE 4/5. LUE ROM limited by pain. Decreased sensation left side of body. Alert, normal mood/ affect, oriented x 2 Skin: Normal color, warm/dry, no rash (Sravanthi Apodaca ., PA-C) Laboratory Results Last 24 Hours Test 11/18/16 15:19 11/18/16 15:25 11/18/16 16:17 11/19/16 03:43 Bedside Glucose 99 mg/dl White Blood Count 16.30 K/uL 9.99 K/uL Red Blood Count 4.76 M/uL 3.89 M/uL Hemoglobin 14.9 g/dL 12.0 g/dL Hematocrit 43.5 % 35.3 % Mean Corpuscular Volume 91.4 fL 90.7 fL Mean Corpuscular Hemoglobin 31.3 pg 30.8 pg Mean Corpuscular Hemoglobin Concent 34.3 g/dl 34.0 g/dl Platelet Count 316 K/uL 238 K/uL Mean Platelet Volume 10.3 fL 9.8 fL Neutrophils (%) (Auto) 86.5 % 74.5 % Lymphocytes (%) (Auto) 3.5 % 11.3 % Monocytes (%) (Auto) 9.6 % 11.7 % Eosinophils (%) (Auto) 0.1 % 2.0 % Basophils (%) (Auto) 0.1 % 0.3 % Neutrophils # (Auto) 14.09 K/uL 7.44 K/uL Lymphocytes # (Auto) 0.57 K/uL 1.13 K/uL Monocytes # (Auto) 1.57 K/uL 1.17 K/uL Eosinophils # (Auto) 0.02 K/uL 0.20 K/uL Basophils # (Auto) 0.02 K/uL 0.03 K/uL RDW Standard Deviation 49.0 fL 49.3 fL RDW Coefficient of Variation 14.6 % 14.8 % Immature Granulocyte % (Auto) 0.2 % 0.2 % Immature Granulocyte # (Auto) 0.03 K/uL 0.02 K/uL Sodium Level 138 mmol/L 140 mmol/L Potassium Level 3.7 mmol/L 3.6 mmol/L Chloride Level 103 mmol/L 111 mmol/L Carbon Dioxide Level 21 mmol/L 20 mmol/L Anion Gap 14.0 mmol/L 9.0 mmol/L Blood Urea Nitrogen 16 mg/dl 15 mg/dl Creatinine 1.20 mg/dl 0.74 mg/dl Estimated GFR () 61.8 94.8 Estimated GFR (Non- 53.3 81.8 BUN/Creatinine Ratio 13.3 20.5 Random Glucose 121 mg/dl 85 mg/dl Uric Acid 6.5 mg/dl Calcium Level 8.7 mg/dl 7.9 mg/dl Total Bilirubin 1.4 mg/dl Direct Bilirubin 0.3 mg/dl Aspartate Amino Transf (AST/SGOT) 44 U/L Alanine Aminotransferase (ALT/SGPT) 44 U/L Alkaline Phosphatase 271 U/L Total Protein 7.8 gm/dl Albumin 3.7 gm/dl Thyroid Stimulating Hormone (TSH) 2.720 uIu/ml Ethyl Alcohol mg/dL < 3.0 mg/dl Est Creatinine Clear Calc Drug Dose 56.7 ml/min Magnesium Level 2.2 mg/dl Total Creatine Kinase 354 U/L Creatine Kinase MB 7.1 ng/ml Creatine Kinase MB Ratio 2.0 Troponin I 0.019 ng/ml Test 11/19/16 11:41 11/19/16 12:17 Creatine Kinase MB Ratio Hemoglobin 12.5 g/dL Hematocrit 37.0 % (Sravanthi Apodaca, MALDONADO) Diagnostic Results Reviewed the following studies and agree with interpretation as follows: Patient Name: SHAN SOLITARIO Unit Number: [id number] Dictated: 11/19/16629 Transcribed: 11/19/16629 MS Printed Date/Time: [~ rep prt dt]/[~ rep prt tm] [~ rep ct labl] - [~ rep ct ivnm] [facility] Radiology Department [place] [id number] Dictated: 11/19/16629 Transcribed: 11/19/16629 MS Printed Date/Time: [~ rep prt dt]/[~ rep prt tm] [~ rep ct labl] - [~ rep ct ivnm] Patient: SHAN SOLITARIO Address1: [address] [place] [address] Rec: [id number] Address2: Acct ID: [id number] [facility] Zip: [place] [address] Date: 1925 Sex: M Room/Bed: [facility] Ref Phy: RV. Whatley MD SC: C.2T Att Phy: Ronald Simon M.D. Report #: [id number] Carina Phy: RV. Whatley MD Test: KATERINA Admit Phy: Ronald Simon M.D. Signals Intelligence Analysis Manager: KELLY Interpreting Phy: Presley Enriquez M.D. Diagnosis: FALL, WEAKNESS Ordering Phy: Ronald Simon M.D. Service Date: 11/18/16 Admit Date: 11/18/1705/15/17 MNE: PWRSCRIBE CONF: DICTATED BY: Presley Enriquez M.D.]] CC: RV. Whatley MD Pasquariello, Rick D M.D. Endcc: [~ rep ct add3]] MRI OF THE BRAIN WITHOUT AND WITH IV CONTRAST SEIZURE PROTOCOL CLINICAL HISTORY: A mental status change COMPARISON STUDY: No previous studies for comparison. TECHNIQUE: Utilizing a 1.5 Kerrie magnet and dedicated coil, multiplanar, multiecho imaging of the brain was performed pre and postcontrast administration. IV administration of 8.5 mL of Gadavist contrast was uneventful. Thin cut coronal T2 imaging was performed according to seizure protocol. FINDINGS: No evidence for an acute ischemic event. Cerebellar as well as cerebral atrophy. Mild compensatory prominence of the ventricular system. Moderate chronic small vessel change of aging. No significant postcontrast enhancement. IMPRESSION: 1. Considerable cerebellar as well as cerebral atrophy. 2. Moderate chronic small vessel change. 3. No abnormal postcontrast enhancement. Electronically signed by: Presley Enriquez M.D. 11/19/2016 6:31 AM Dictated Date/Time: 11/19/2016 6:30 AM The status of this report is Signed. Draft = Not yet reviewed or approved by Radiologist. Signed = Reviewed and approved by Radiologist. <AttendingPhy>Ronald Simon M.D.</AttendingPhy> <FamilyPhy>RV. Kruger MD</FamilyPhy> <PrimaryPhy>RV. Whatley MD</ PrimaryPhy> <UnitNumber>[id number]</UnitNumber> <VisitNumber>[id number]</ VisitNumber> <PatientName>SHAN SOLITARIO</PatientName> <DateOfBirth>1925</ DateOfBirth> <Location>C.2T</Location> <ServiceDate>11/18/16</ServiceDate> <MNE> ESINDI</MNE> <OrderingPhy>Ronald Simon M.D.</OrderingPhy> < OrderingPhyMNE>f rep ord dr martinez</OrderingPhyMNE> <DictatingPhyMNE>f rep dict dr martinez</DictatingPhyMNE> <CCListMNE>f rep ct mne</CCListMNE> <AdmittingPhyMNE>f pt admit dr martinez</AdmittingPhyMNE> <AttendingPhyMNE>f pt attend dr martinez</ AttendingPhyMNE> <ConsultingPhyMNE>f pt consult dr martinez</ConsultingPhyMNE> <FamilyPhyMNE>f pt fam dr martinez</FamilyPhyMNE> <OtherPhyMNE>f pt other dr martinez</OtherPhyMNE> < PrimaryPhyMNE>f pt prim care dr martinez</PrimaryPhyMNE> <ReferringPhyMNE>f pt referring dr martinez</ReferringPhyMNE> Patient Name: SHAN SOLITARIO Unit Number: [id number] Dictated: 11/19/16642 Transcribed: 11/19/16642 ARG Printed Date/Time: [~ rep prt dt]/[~ rep prt tm] [~ rep ct labl] - [~ rep ct ivnm] [facility] [place] [address] Dictated: 11/19/16642 Transcribed: 11/19/16642 ARG Printed Date/Time: [~ rep prt dt]/[~ rep prt tm] [~ rep ct labl] - [~ rep ct ivnm] Patient: SHAN SOLITARIO Address1: [address] [place] [address] Rec: [id number] Address2: Acct ID: [id number] [facility] Zip: [place] [address] Date: 1925 Sex: M Room/Bed: [facility] Ref Phy: RV. Whatley MD SC: C.2T Att Phy: Ronald Simon M.D. Report #: [id number] Carina Phy: RV. Whatley MD Test: MRAHWO Admit Phy: Ronald Simon M.D. Signals Intelligence Analysis Manager: KELLY Interpreting Phy: Rodney Green M.D. Diagnosis: FALL, WEAKNESS Ordering Phy: Ronald Simon M.D. Service Date: 11/18/16 Admit Date: 11/18/1705/15/17 MNE: PWRSCRIBE CONF: DICTATED BY: Rodney Green M.D.]] CC: RV. Whatley MD Pasquariello, Rick D M.D. Endcc: [~ rep ct add3]] MR ANGIOGRAPHY OF THE [place] NO CONTRAST CLINICAL HISTORY: Stroke. Slurred speech. Disorientation. Senile dementia. COMPARISON STUDY: None. A 3-D [id number] MR angiographic sequence of the [place] was performed. Both the source and projection images were reviewed. There are no lesion suspicious for aneurysm. There is diminished flow involving the right middle cerebral artery territory. There is a stenosis involving the proximal left posterior cerebral artery. The right posterior cerebral artery is not visualized and possibly occluded. The distal left vertebral artery is poorly visualized suggesting slow flow. IMPRESSION: 1. No evidence of aneurysm 2. Poor visualization of the distal left vertebral artery suggesting diminished/slow flow 3. Possible occlusion of the right posterior cerebral artery 4. 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 Decreased caliber of the right middle cerebral artery branches. Electronically signed by: Rodney Green M.D. 11/19/2016 6:47 AM Dictated Date/Time: 11/19/2016 6:43 AM The status of this report is Signed. Draft = Not yet reviewed or approved by Radiologist. Signed = Reviewed and approved by Radiologist. <AttendingPhy>Ronald Simon M.D.</AttendingPhy> <FamilyPhy>RV. Kruger MD</FamilyPhy> <PrimaryPhy>RV. Whatley MD</ PrimaryPhy> <UnitNumber>[id number]</UnitNumber> <VisitNumber>[id number]</ VisitNumber> <PatientName>SHAN SOLITARIO</PatientName> <DateOfBirth>1925</ DateOfBirth> <Location>C.2T</Location> <ServiceDate>11/18/16</ServiceDate> <MNE> ESINDI</MNE> <OrderingPhy>Ronald Simon M.D.</OrderingPhy> < OrderingPhyMNE>f rep ord dr martinez</OrderingPhyMNE> <DictatingPhyMNE>f rep dict dr martinez</DictatingPhyMNE> <CCListMNE>f rep ct mne</CCListMNE> <AdmittingPhyMNE>f pt admit dr martinez</AdmittingPhyMNE> <AttendingPhyMNE>f pt attend dr martinez</ AttendingPhyMNE> <ConsultingPhyMNE>f pt consult dr martinez</ConsultingPhyMNE> <FamilyPhyMNE>f pt fam dr martinez</FamilyPhyMNE> <OtherPhyMNE>f pt other dr martinez</OtherPhyMNE> < PrimaryPhyMNE>f pt prim care dr martinez</PrimaryPhyMNE> <ReferringPhyMNE>f pt referring dr martinez</ReferringPhyMNE> Patient Name: SHAN SOLITARIO Unit Number: [id number] Dictated: 11/19/16646 Transcribed: 11/19/16646 ARG Printed Date/Time: [~ rep prt dt]/[~ rep prt tm] [~ rep ct labl] - [~ rep ct ivnm] [facility] [place] [address] Dictated: 11/19/16646 Transcribed: 11/19/16646 ARG Printed Date/Time: [~ rep prt dt]/[~ rep prt tm] [~ rep ct labl] - [~ rep ct ivnm] Patient: SHAN SOLITARIO Address1: [address] [place] [address] Rec: [id number] Address2: Acct ID: [id number] [facility] Zip: [place] [address] Date: 1925 Sex: M Room/Bed: [facility] Ref Phy: RV. Whatley MD SC: KarisT Att Phy: Ronald Simon M.D. Report #: [id number] Carina Phy: RV. Whatley MD Test: MRANC Admit Phy: Ronald Simon M.D. Signals Intelligence Analysis Manager: KELLY Interpreting Phy: Rodnye Green M.D. Diagnosis: FALL, WEAKNESS Ordering Phy: Ronald Simon M.D. Service Date: 11/18/16 Admit Date: 11/18/1705/15/17 MNE: PWRSCRIBE CONF: DICTATED BY: Rodney Green M.D.]] CC: RV. Whatley MD Pasquariello, Rick D M.D. Endcc: [~ rep ct add3]] NECK MRA HISTORY: Stroke. Slurred speech. Disorientation. Signal dimension. TECHNIQUE: Agwn-od-oiaiwo and gadolinium-enhanced MRA of the neck was performed both before and after the intravenous administration of contrast. All measurements were calculated based on NASCET criteria. The study is performed during the administration of 6 cc of intravenous Gadavist. COMPARISON STUDY: None. FINDINGS: There is no evidence of hemodynamically significant left internal carotid artery stenosis. There is a 50% stenosis involving the right internal carotid artery origin. There is severe narrowing of the right external carotid artery origin. There is a high-grade stenosis involving the right vertebral artery origin. There is beading of the cervical portion the right vertebral artery without evidence of focal stenosis. There are multifocal high-grade stenotic lesions of the distal left vertebral artery. The proximal mid left vertebral artery are not visualized and may be hypoplastic or occluded. IMPRESSION: 1. 50% stenosis involving the origin the right internal carotid artery 2. High-grade stenosis involving the origin of the right external carotid artery 3. No evidence of hemodynamic significant left internal carotid artery stenosis 4. High-grade stenosis involving the left vertebral artery origin 5. Multifocal stenoses involving the distal left vertebral artery 6. Nonvisualization of the proximal mid left vertebral artery, suggesting hypoplasia or proximal occlusion Electronically signed by: Rodney Green M.D. 11/19/2016 6:52 AM Dictated Date/Time: 11/19/2016 6:47 AM The status of this report is Signed. Draft = Not yet reviewed or approved by Radiologist. Signed = Reviewed and approved by Radiologist. <AttendingPhy>Ronald Simon M.D.</AttendingPhy> <FamilyPhy>RV. Kruger MD</FamilyPhy> <PrimaryPhy>RV. Whatley MD</ PrimaryPhy> <UnitNumber>[id number]</UnitNumber> <VisitNumber>[id number]</ VisitNumber> <PatientName>SHAN SOLITARIO</PatientName> <DateOfBirth>1925</ DateOfBirth> <Location>C.2T</Location> <ServiceDate>11/18/16</ServiceDate> <MNE> ESINDI</MNE> <OrderingPhy>Ronald Simon M.D.</OrderingPhy> < OrderingPhyMNE>f rep ord dr martinez</OrderingPhyMNE> <DictatingPhyMNE>f rep dict dr martinez</DictatingPhyMNE> <CCListMNE>f rep ct doce</CCListMNE> <AdmittingPhyMNE>f pt admit dr martinez</AdmittingPhyMNE> <AttendingPhyMNE>f pt attend dr martinez</ AttendingPhyMNE> <ConsultingPhyMNE>f pt consult dr martinez</ConsultingPhyMNE> <FamilyPhyMNE>f pt fam dr martinez</FamilyPhyMNE> <OtherPhyMNE>f pt other dr martinez</OtherPhyMNE> < PrimaryPhyMNE>f pt prim care dr martinez</PrimaryPhyMNE> <ReferringPhyMNE>f pt referring dr martinez</ReferringPhyMNE> (Sravanthi Apodaca ., [place]) Assessment and Plan 89 y/o male with a history of CVA, HLD, seizure disorder, and urinary incontinence who presented following a fall. The patient was felt floor on his left side around 11 AM and was confused with dysarthria at that time. It is unknown how or when the patient fell, or how long he was on the ground. The patient has some slurred speech arrival to the ED but this was improving at the time of admission. Also reports having intermittent hallucinations at the time of admission. Per patient and patient's son, he has been having ongoing left leg weakness practice. Son states he has had generalized weakness and increased difficulty ambulating lately. Patient complains of pain left shoulder and wrist. Left shoulder and left wrist x-rays negative for fracture. Head CT negative for acute findings. Fall, weakness-stable -Admit to telemetry. Patient remained stable overnight. Sinus rhythm with PVCs , HR in 80s. Transfer to med/surg 11/19 -Disoriented, but no confusion or hallucinations now -Trending cardiac enzymes q8h x 3. First 2 sets negative -Brain MRI negative for acute ischemia. Shows moderate chronic small vessel changes and atrophy -Head MRA shows possible occlusion of right posterior cerebral artery, high- grade stenosis of left posterior cerebral artery, decreased caliber of right middle cerebral artery branches -Neck MRA shows 50% stenosis of right internal carotid artery, high-grade stenosis of right external carotid artery, high-grade stenosis of left vertebral artery -Echocardiogram completed, results pending -PT/OT evaluate and treat -Consult neurology, appreciate recs -TSH WNL -Check vitamin B12 level H/o CVA, abnormal MRA findings as above -Continue aspirin 81 mg PO qd and Plavix 75 mg PO qd -Check fasting lipid panel -Check hemoglobin A1c for risk stratification Acute anemia--secondary to blood loss? -Hgb 14.9 on admission -Hgb dropped to 12.0 on 11/19 -Check fecal occult blood -Recheck H&H at 1200, up to 12.5 HLD -Continue atorvastatin 40 mg PO qd Seizure disorder -Continue Keppra 500 mg PO BID -Keppra level pending Urinary incontinence -Continue oxybutynin 5 mg PO qd Arthritis -Voltaren gel QID prn DVT prophylaxis -SCDs Code Status -Level I, FULL RESUSCITATION STATUS (Sravanthi Apodaca ., PA-C) I agree with PA assessment and plan and have seen and examined pt myself Resting comfortably in bed Reviewed labs and imaging No acute stroke noted Neck MRA significant blockages noted Neurology consulted PT/OT consulted (Erickson Haney D.O.)
[2016-11-19 14:03] LABS: ESTIMATED AVERAGE GLUCOSE 120 mg/dl; HA1C FLAG Normal (Normal)
[2016-11-19 16:22] LABS: CALCIUM 8.7 mg/dl (8.5-10.1)
--- NOTE | 2016-11-19 18:31 | ECHOCARDIOGRAM REPORT ---
*NOTICE TO RECEIVING LIBERTARIAN AGENCY This information is strictly Confidential and protected under [place] law. [place] law prohibits you from making any further disclosure of this information unless further disclosure is expressly permitted by the written consent of the person to whom it pertains or is authorized by law. A general authorization for the release of medical or other information is not sufficient for this purpose. Hospital accepts no responsibility if the information is made available to any other person, INCLUDING THE PATIENT. Interpretation Summary * Name: SHAN SOLITARIO Study Date: 11/19/2016 09:29 AM BP: 104/59 mmHg * Patient Location: C.2T\S\S243\S\1 HR: 88 * : 1925 (M/d/yyyy) Gender: Male Height: 64 in * Age: 89 yrs Ethnicity: [place] Weight: 159 lb * Ordering Physician: Ronald Simon * Referring Physician: Self, Referred * Performed By: Bettina Colón, [facility] * * Reason For Study: CEREBRAL ISCHEMIA / EMBOLUS * BSA: 1.8 m2 * -- Conclusions -- * 1. Normal left ventricular size with hyperdynamic systolic function. EF 65-70%. No regional wall motion abnormalities. Mild to moderate concentric left ventricular hypertrophy. Type 1 diastolic dysfunction. * 2. Mild to moderate pulmonic valvular regurgitation. * 3. Mild aortic stenosis. * 4. Normal estimated right ventricular systolic pressure; 24 mmHg. * 5. Technically difficult study, enhanced with IV Definity. * 6. Compared to prior study on 06/26/2015, mild aortic stenosis is now present. Procedure Details * A complete two-dimensional transthoracic echocardiogram was performed (2D, M-mode, Doppler and color flow Doppler). * A contrast injection of Definity was performed to improve assessment of LV function. * Contrast was injected into an intravenous site in the right arm. * One vial of Definity ultrasound contrast was diluted in normal saline to a total volume of 10 ml. A total of '2' ml of solution was administered during imaging. * Lot # [id number] of Definity utilized for procedure. * Expiration date JAN 20. * The attending nurse who injected the contrast agent was MYRON ROBERTS, RN. Left Ventricle * Normal left ventricular size with hyperdynamic systolic function. EF 65-70%. No regional wall motion abnormalities. Mild to moderate concentric left ventricular hypertrophy. Type 1 diastolic dysfunction. Right Ventricle * The right ventricle is normal in size and function. * The right ventricular systolic function is normal as assessed by tricuspid annular plane systolic excursion (TAPSE) (normal >1.5 cm). Atria * Borderline left atrial enlargement. * Right atrial size is normal. * There is no evidence of atrial septal defect, but resolution does not allow assessment for a patent foramen ovale. Mitral Valve * There is moderate mitral annular calcification. * There is no mitral valve stenosis. * There is trace mitral regurgitation. Tricuspid Valve * The tricuspid valve is not well visualized, but is grossly normal. * There is no tricuspid stenosis. * There is trace tricuspid regurgitation. Aortic Valve * The aortic valve is trileaflet. * Mild valvular aortic stenosis. * There is no significant aortic regurgitation. Pulmonic Valve * The pulmonary valve is inadequately visualized, but the Doppler data is adequate for interpretation. * There is no pulmonic valvular stenosis. * Mild to moderate pulmonic valvular regurgitation. Great Vessels * Aortic arch of normal dimension. * The aortic root is normal size. Pericardium/Pleural * There is no pericardial effusion. Great Vessels * Normal inferior vena cava size and collapsability with sniff indicates a normal right atrial pressure of 3 mmHg MMode 2D Measurements and Calculations IVSd 1.4 cm IVSs 2.0 cm LVIDd 3.5 cm LVIDs 2.1 cm LVPWd 1.3 cm LVPWs 1.4 cm IVS/LVPW 1.1 FS 39.4 % EDV(Teich) 52.4 ml ESV(Teich) 15.3 ml EF(Teich) 70.9 % EDV(cubed) 44.5 ml ESV(cubed) 9.9 ml EF(cubed) 77.7 % % IVS thick 40.8 % % LVPW thick 10.9 % LV mass(C)d 160.4 grams LV mass(C)dI 90.4 grams/m\S\2 LV mass(C)s 130.2 grams LV mass(C)sI 73.4 grams/m\S\2 SV(Teich) 37.2 ml SI(Teich) 20.9 ml/m\S\2 SV(cubed) 34.6 ml SI(cubed) 19.5 ml/m\S\2 Ao root diam 3.4 cm Ao root area 9.2 cm\S\2 LVOT diam 2.2 cm LVOT area 3.7 cm\S\2 Doppler Measurements and Calculations MV E max daniel 61.5 cm/sec MV A max daniel 86.8 cm/sec MV E/A 0.71 MV P1/2t max daniel 75.5 cm/sec MV P1/2t 62.4 msec MVA(P1/2t) 3.5 cm\S\2 MV dec slope 354.5 cm/sec\S\2 MV dec time 0.20 sec Ao V2 max 202.4 cm/sec Ao max PG 16.4 mmHg Ao max PG (full) 13.3 mmHg Ao V2 mean 137.0 cm/sec Ao mean PG 8.7 mmHg Ao mean PG (full) 7.1 mmHg Ao V2 VTI 35.5 cm JARETH(I,A) 1.8 cm\S\2 JARETH(I,D) 1.8 cm\S\2 JARETH(V,A) 1.6 cm\S\2 JARETH(V,D) 1.6 cm\S\2 LV V1 max PG 3.1 mmHg LV V1 mean PG 1.5 mmHg LV V1 max 87.6 cm/sec LV V1 mean 55.4 cm/sec LV V1 VTI 17.2 cm SV(Ao) 325.4 ml SI(Ao) 183.4 ml/m\S\2 SV(LVOT) 63.0 ml SI(LVOT) 35.5 ml/m\S\2 PA V2 max 87.1 cm/sec PA max PG 3.0 mmHg PI max daniel 155.4 cm/sec PI max PG 9.7 mmHg PI dec slope 153.8 cm/sec\S\2 PI P1/2t 295.9 msec TR max daniel 227.2 cm/sec RVSP(TR) 23.7 mmHg RAP systole 3.0 mmHg
[2016-11-19] MEDS: ATORVASTATIN 20 MG TAB PO SCH (21:00)
[2016-11-19 21:15] LABS: CKMB/CK RATIO 1.5 (0-3.0)
[2016-11-20] MEDS: ACETAMINOPHEN 325 MG TAB PO PRN ×3 (05:35→21:31)
[2016-11-20 07:06] LABS: BASO % 0.2 %; BASO ABS # 0.02 K/uL (0-0.2); COMPLETE YES; EOS % 2.9 %; HEMATOCRIT 34.9 % (42-52); IG% 0.3 %; LYMPH % 6.8 %; LYMPH ABS # 0.68 K/uL (1.2-3.4); MEAN CELL VOLUME 91.1 fL (80-100); MEAN PLATELET VOLUME 9.5 fL (7.4-10.4); MONO % 13.3 %; NEUT % 76.5 %; PLATELET COUNT 267 K/uL (130-400); RED BLOOD COUNT 3.83 M/uL (4.7-6.1); WHITE BLOOD COUNT 9.97 K/uL (4.8-10.8)
[2016-11-20 07:36] LABS: BUN/CREATININE RATIO 17.7 (10-20); CALCIUM 7.5 mg/dl (8.5-10.1); CREATININE 0.84 mg/dl (0.60-1.40); MAGNESIUM 2.3 mg/dl (1.8-2.4); POTASSIUM 3.3 mmol/L (3.5-5.1)
[2016-11-20 07:40] LABS: CHOLESTEROL/HDL RATIO 2.1
[2016-11-20 07:52] VITALS: BP 106/67; PULSE 71; TEMP 36.8; O2SAT 95
[2016-11-20 08:00] VITALS: O2SAT 95
[2016-11-20] MEDS: OXYBUTYNIN CHLORIDE 5 MG TABCR PO SCH (08:26)
[2016-11-20] MEDS: ASPIRIN 81 MG ECTAB PO SCH (08:26)
[2016-11-20] MEDS: CLOPIDOGREL BISULFATE 75 MG TAB PO SCH (08:26)
[2016-11-20] MEDS: BACITRACIN OINT 15 GM TUBE EXT SCH (08:27)
[2016-11-20] MEDS: LEVETIRACETAM 500 MG TAB PO SCH ×2 (08:27→21:32)
[2016-11-20] MEDS ORDERED: POTASSIUM CHLORIDE 10 MEQ TABCR PO ONE (08:45)
[2016-11-20] MEDS: CYANOCOBALAMIN 500 MCG TAB (VIT B-12) PO SCH (09:37)
[2016-11-20 10:23] VITALS: O2SAT 95
--- NOTE | 2016-11-20 10:25 | Neurology Consultation ---
Neurology Consultation Date of Consultation: Nov 20, 2016. Attending Physician: Preston Navarrete D.O. Primary Care Physician: RV. Whatley MD Reason for Consultation: Worsening weakness, left-sided numbness History of Present Illness Source: patient, hospital records The patient is an 89-year-old male who was found on the floor by his son. He was felt to be confused and have been exhibiting some speech changes as well at that time. He had complained of left-sided weakness and low back pain. He was also felt to be having intermittent hallucinations. This patient's history is notable for chronic lower extremity weakness felt to be related to a history of lumbar spinal surgery for spinal stenosis. His past medical history is also notable for peripheral neuropathy and stroke. His history is also notable for a significant fall that had occurred 3 days prior resulting in some contusions to the left leg and shoulder. The patient was also hospitalized in July of this year after a fall. In addition to chronic gait dysfunction, recurrent falls , and peripheral neuropathy, this patient has a history of right hemispheric stroke for which she was evaluated by Dr. Ramachandran during a hospitalization in early 2015. At that time, it was also noted that this patient has a history of seizure disorder which was evaluated by Dr. Mccarty about 10 years prior for which she was placed on Keppra. The patient continues with his anticonvulsant. There is no mention of any recurrent seizures in the medical record. The patient is an unreliable historian and the above information is taken largely from the electronic record. He does complain of some persistent pain and discomfort affecting the left arm and leg is worse with attempts at movement. This patient's white blood cell count was 16.3 at presentation. He has some elevation of bili Armando and AST as well. CKs mildly elevated. Troponin negative. B-12 and TSH normal. A urinalysis and toxicology screen are unremarkable. A transthoracic echocardiogram is generally unremarkable. Electrocardiogram reveals a sinus rhythm with PVCs. Past Medical/Surgical History Medical Problems: (1) Altered mental status Status: Acute (2) Altered mental status Status: Acute (3) Contusion of rib on left side Status: Acute (4) Dehydration Status: Acute (5) LUE weakness Status: Acute Family History Family history notable for paternal stroke as well as dementia in an uncle Social History Smokeless Tobacco Use: No Alcohol Use: none Drug Use: none Marital Status: Housing Status: lives with family Occupation Status: retired Allergies Coded Allergies: Sulfa Antibiotics (Verified Allergy, Unknown, "SULFA DRUGS": UNKNOWN, 11/18) Current Inpatient Medications Current Inpatient Medications Medications (Trade) Dose Ordered Sig/Sylvie Route Start Time Stop Time Status Last Admin Dose Admin Acetaminophen (Tylenol Tab) 650 mg Q4H PRN PO 11/18/16 19:45 12/18/16 19:44 11/20/16 05:35 650 MG Nitroglycerin (Nitrostat Tab) 0.4 mg UD PRN SL 11/18/16 19:45 12/18/16 19:44 Atorvastatin Calcium (Lipitor Tab) 40 mg QPM PO 11/18/16 21:00 12/18/16 20:59 11/18/16 23:31 40 MG Clopidogrel Bisulfate (plAVix TAB) 75 mg QAM PO 11/19/16 09:00 12/19/16 08:59 11/20/16 08:26 75 MG Levetiracetam (Keppra Tab) 500 mg BID PO 11/18/16 21:00 12/18/16 20:59 11/20/16 08:27 500 MG Ondansetron HCl (Zofran Inj) 4 mg Q6H PRN IV 11/18/16 19:45 12/18/16 19:44 Acetaminophen 100 ml @ 400 mls/hr Q8H PRN IV 11/18/16 19:45 12/18/16 19:44 Diclofenac Sodium (Voltaren 1% Top Gel) 1 appln QID PRN EXT 11/18/16 23:00 12/18/16 22:59 11/20/16 08:29 1 APPLN Aspirin (Ecotrin Tab) 81 mg QAM PO 11/19/16 09:00 12/19/16 08:59 11/20/16 08:26 81 MG Gadobutrol (Gadavist) 6 mmol UD PRN IV 11/18/16 23:15 11/22/16 23:14 Bacitracin (Bacitracin Oint) 1 appln DAILY EXT 11/19/16 13:00 12/19/16 12:59 11/20/16 08:27 1 APPLN Oxybutynin Chloride (Ditropan-Xl Tab) 5 mg DAILY PO 11/20/16 09:00 12/20/16 08:59 11/20/16 08:26 5 MG Cyanocobalamin (Vitamin B-12 Tab) 1,000 mcg QAM PO 11/20/16 09:00 12/20/16 08:59 11/20/16 09:37 1,000 MCG Review of Systems A complete 10 point review of systems cannot be obtained in this patient in a reliable fashion as his mental status is altered. Otherwise, pertinent positives and negatives are described in the history of present illness. Physical Exam Vital Signs (Past 24 Hrs): Date Time Temp Pulse Resp B/P (MAP) Pulse Ox O2 Delivery O2 Flow Rate FiO2 11/20/16 07:52 36.8 71 18 106/67 (80) 95 Room Air 11/20/16 00:00 Room Air 11/19/16 23:39 36.6 95 18 125/65 (85) 95 Room Air 11/19/16 16:43 36.6 74 18 94 11/19/16 16:00 Room Air 11/19/16 15:36 74 94 11/19/16 15:35 36.6 88 18 116/65 (82) 96 Room Air 11/19/16 11:29 36.9 63 20 113/71 (85) 97 Room Air The patient is a frail appearing elderly male. He is generally nonagitated does not appear to be in significant distress area and he is alert and oriented to person only. He could not correctly identify the day of the week and had considerable difficulty recalling the exact month. Attention and concentration impaired. Delayed recall impaired, 0/3. He is able to name objects and repeat phrases. He has a limited fund of knowledge pertaining to his current illness. Vocabulary normal. Visual candelaria full to confrontation. Visual acuity normal. Pupils equal round reactive to light and accommodation. Eye movements normal. Facial sensation intact. There is no facial droop. Hearing intact. Palate elevates to midline. There is mild weakness of shoulder shrug on the left. Tongue protrudes to midline. There is diminished sensation to vibration and light touch following a length dependent fashion. Deep tendon reflexes are diffusely diminished, absent at the Achilles tendons. Plantar responses silent. There is no dysmetria with finger to nose bilaterally. Patient unable to perform heel to jules bilaterally due to lower extremity weakness and discomfort associated with movement. Relatively small pupil size impedes attempts at visualizing the optic nerves and posterior segments. Carotid pulses normal bilaterally, no bruits to auscultation. Gait and station cannot be tested. Testing of muscle strength reveals weakness of both lower extremities, 3/5 bilaterally. Bilateral foot drops noted as well. Strength testing for the right arm reveals generally normal strength. Strength testing for the left arm limited due to discomfort area muscle tone normal throughout. There is no focal atrophy. No abnormal movements observed. Laboratory Results Past 24 Hours: 11/20/16 06:45 Red Blood Count 3.83, Mean Corpuscular Volume 91.1, Mean Corpuscular Hemoglobin 30.0, Mean Corpuscular Hemoglobin Concent 33.0, Mean Platelet Volume 9.5, Neutrophils (%) (Auto) 76.5, Lymphocytes (%) (Auto) 6.8, Monocytes (%) (Auto) 13.3, Eosinophils (%) (Auto) 2.9, Basophils (%) (Auto) 0.2, Neutrophils # (Auto ) 7.62, Lymphocytes # (Auto) 0.68, Monocytes # (Auto) 1.33, Eosinophils # (Auto ) 0.29, Basophils # (Auto) 0.02 11/20/16 06:45 Test 11/19/16 13:11 11/19/16 20:30 11/20/16 06:45 Estimated Average Glucose 120 mg/dl Hemoglobin A1c 5.8 % (4.5-5.6) Vitamin B12 Level 380 pg/mL (211-911) Total Creatine Kinase 319 U/L (39-308) Creatine Kinase MB 4.8 ng/ml (0.5-3.6) Creatine Kinase MB Ratio 1.5 (0-3.0) Troponin I < 0.015 ng/ml (0-0.045) White Blood Count 9.97 K/uL (4.8-10.8) Red Blood Count 3.83 M/uL (4.7-6.1) Hemoglobin 11.5 g/dL (14.0-18.0) Hematocrit 34.9 % (42-52) Mean Corpuscular Volume 91.1 fL (80-100) Mean Corpuscular Hemoglobin 30.0 pg (25-34) Mean Corpuscular Hemoglobin Concent 33.0 g/dl (32-36) Platelet Count 267 K/uL (130-400) Mean Platelet Volume 9.5 fL (7.4-10.4) Neutrophils (%) (Auto) 76.5 % Lymphocytes (%) (Auto) 6.8 % Monocytes (%) (Auto) 13.3 % Eosinophils (%) (Auto) 2.9 % Basophils (%) (Auto) 0.2 % Neutrophils # (Auto) 7.62 K/uL (1.4-6.5) Lymphocytes # (Auto) 0.68 K/uL (1.2-3.4) Monocytes # (Auto) 1.33 K/uL (0.11-0.59) Eosinophils # (Auto) 0.29 K/uL (0-0.5) Basophils # (Auto) 0.02 K/uL (0-0.2) RDW Standard Deviation 50.5 fL (36.4-46.3) RDW Coefficient of Variation 15.0 % (11.5-14.5) Immature Granulocyte % (Auto) 0.3 % Immature Granulocyte # (Auto) 0.03 K/uL (0.00-0.02) Anion Gap 11.0 mmol/L (3-11) Est Creatinine Clear Calc Drug Dose 49.9 ml/min Estimated GFR () 90.0 Estimated GFR (Non- 77.6 BUN/Creatinine Ratio 17.7 (10-20) Calcium Level 7.5 mg/dl (8.5-10.1) Magnesium Level 2.3 mg/dl (1.8-2.4) Triglycerides Level 82 mg/dl (0-150) Cholesterol Level 76 mg/dl (0-200) HDL Cholesterol 36 mg/dl LDL Cholesterol, Calculated 24 mg/dl VLDL Cholesterol, Calculated 16 mg/dl Cholesterol/HDL Ratio 2.1 Imaging I reviewed the images and radiologist's interpretation of the recently completed brain MRI. The study was done with and without gadolinium enhancement. Diffusion-weighted images negative for acute or subacute infarct. There is severe generalized atrophy. There is extensive periventricular white matter ischemic disease. Thin seizure sections unremarkable. 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 There is diminished caliber of the right middle cerebral artery as well as diminished flow within the left vertebral artery. MR angiography of the neck reveals a 50% stenosis of the right internal carotid artery. There is a high-grade stenosis of the left vertebral artery. Impression This is a frail elderly male with chronic gait dysfunction and recurrent falls. He has chronic lower extremity weakness related in part to a history of lumbar spinal stenosis requiring decompressive surgery, and what appears to be a significant, chronic, length dependent peripheral neuropathy. I also suspect that his extensive periventricular white matter disease appreciated on MRI also contributes to his chronic gait dysfunction. There is no evidence of acute or subacute stroke. There does not appear to be any evidence that he has been having recurrent seizures. 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 He does not appear to have parkinsonism, however. I do not strongly suspect Lewy body disease in this individual. Plan I really do not have any further immediate recommendations from a neurological standpoint for this patient. 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 He should continue with Plavix and other cardiovascular risk modifying medications. He should continue with Keppra at the current dosage. Case discussed with attending hospitalist at bedside this morning.
--- NOTE | 2016-11-20 12:23 | DIAGNOSTIC IMAGING REPORT ---
LEFT HIP UNILATERAL 2 VIEWS CLINICAL HISTORY: 3 views if possible trauma. Pain. COMPARISON: None. DISCUSSION: Moderate degenerative change. No acute bony abnormality. Cortical margins are intact. There is no evidence for soft tissue swelling. IMPRESSION: Moderate degenerative change. No acute bony abnormality. Electronically signed by: Presley Enriquez M.D. 11/20/2016 12:22 PM Dictated Date/Time: 11/20/2016 12:21 PM
[2016-11-20 15:31] VITALS: BP 136/68; PULSE 69; TEMP 36.6; O2SAT 96
[2016-11-20 16:22] VITALS: O2SAT 96
--- NOTE | 2016-11-20 17:54 | Progress Note ---
Subjective Date of Service: Nov 20, 2016. Subjective Pt evaluation today including: conversation w/ patient, conversation w/ family , physical exam, chart review, lab review, review of studies, review of inpatient medication list seems to be doing better main complaints today are hip pain and wrist pain still weak updatd pt and family no other questions called son later in the day to update on Xray results Problem List Medical Problems: (1) Altered mental status Status: Acute (2) Altered mental status Status: Acute (3) Contusion of rib on left side Status: Acute (4) Dehydration Status: Acute (5) LUE weakness Status: Acute Review of Systems ROS otherwise negative except for as above Objective Vital Signs Date Time Temp Pulse Resp B/P (MAP) Pulse Ox O2 Delivery O2 Flow Rate FiO2 11/20/16 15:31 36.6 69 17 136/68 (90) 96 Room Air 11/20/16 10:23 95 Room Air 11/20/16 08:00 95 Room Air 11/20/16 07:52 36.8 71 18 106/67 (80) 95 Room Air 11/20/16 00:00 Room Air 11/19/16 23:39 36.6 95 18 125/65 (85) 95 Room Air Physical Exam General Appearance: no apparent distress Eyes: EOMI ENT: hearing grossly normal Neck: trachea midline Respiratory/Chest: no respiratory distress, no accessory muscle use Extremities: + pertinent finding (L wrist swollen, painful ROM) Neurologic/Psychiatric: puller machine II-XII nml as tested, alert Skin: normal color, warm/dry Laboratory Results Last 24 Hours Test 11/19/16 20:30 11/20/16 06:45 Total Creatine Kinase 319 U/L Creatine Kinase MB 4.8 ng/ml Creatine Kinase MB Ratio 1.5 Troponin I < 0.015 ng/ml White Blood Count 9.97 K/uL Red Blood Count 3.83 M/uL Hemoglobin 11.5 g/dL Hematocrit 34.9 % Mean Corpuscular Volume 91.1 fL Mean Corpuscular Hemoglobin 30.0 pg Mean Corpuscular Hemoglobin Concent 33.0 g/dl Platelet Count 267 K/uL Mean Platelet Volume 9.5 fL Neutrophils (%) (Auto) 76.5 % Lymphocytes (%) (Auto) 6.8 % Monocytes (%) (Auto) 13.3 % Eosinophils (%) (Auto) 2.9 % Basophils (%) (Auto) 0.2 % Neutrophils # (Auto) 7.62 K/uL Lymphocytes # (Auto) 0.68 K/uL Monocytes # (Auto) 1.33 K/uL Eosinophils # (Auto) 0.29 K/uL Basophils # (Auto) 0.02 K/uL RDW Standard Deviation 50.5 fL RDW Coefficient of Variation 15.0 % Immature Granulocyte % (Auto) 0.3 % Immature Granulocyte # (Auto) 0.03 K/uL Sodium Level 140 mmol/L Potassium Level 3.3 mmol/L Chloride Level 108 mmol/L Carbon Dioxide Level 21 mmol/L Anion Gap 11.0 mmol/L Blood Urea Nitrogen 15 mg/dl Creatinine 0.84 mg/dl Est Creatinine Clear Calc Drug Dose 49.9 ml/min Estimated GFR () 90.0 Estimated GFR (Non- 77.6 BUN/Creatinine Ratio 17.7 Random Glucose 101 mg/dl Calcium Level 7.5 mg/dl Magnesium Level 2.3 mg/dl Triglycerides Level 82 mg/dl Cholesterol Level 76 mg/dl HDL Cholesterol 36 mg/dl LDL Cholesterol, Calculated 24 mg/dl VLDL Cholesterol, Calculated 16 mg/dl Cholesterol/HDL Ratio 2.1 Assessment and Plan 89 y/o male with a history of CVA, HLD, seizure disorder, and urinary incontinence who presented following a fall. The patient was felt floor on his left side around 11 AM and was confused with dysarthria at that time. It is unknown how or when the patient fell, or how long he was on the ground. The patient has some slurred speech arrival to the ED but this was improving at the time of admission. Also reports having intermittent hallucinations at the time of admission. Per patient and patient's son, he has been having ongoing left leg weakness practice. Son states he has had generalized weakness and increased difficulty ambulating lately. Patient complains of pain left shoulder and wrist. Left shoulder and left wrist x-rays negative for fracture. Head CT negative for acute findings. Fall, weakness-stable -with hindsight appearing most likely due to dehydration - improved. possible TIA but unlikely - manage as below -certainly dehydration could have also accounted for confusion/hallucinations as a delirium/metabolic encephalopathy H/o CVA, abnormal MRA findings -d/w neuro, input appreciated. both doubt that cerebrovascular disease is part of acute presentation but still is an entity that needs managed -med management for now anemia -very likely drop is dillutional from dehydration HLD -Continue atorvastatin 40 mg PO qd Seizure disorder -Continue Keppra 500 mg PO BID -Keppra level pending Urinary incontinence -Continue oxybutynin 5 mg PO qd Arthritis - wrist -Voltaren gel QID hip pain -fortunatley no fracture - likely was arthritis flare as well DVT prophylaxis -lovenox Code Status -Level I, FULL RESUSCITATION STATUS dispo -probably rehab vs snf
[2016-11-20] MEDS: DICLOFENAC SOD 1% GEL 100 GM TUBE EXT SCH (21:32)
[2016-11-20] MEDS: ATORVASTATIN 20 MG TAB PO SCH (21:32)
[2016-11-20 22:09] LABS: INR 1.1 (0.9-1.1); PARTIAL THROMBOPLASTIN RATIO 1.4; PROTHROMBIN TIME (PATIENT) 11.6 SECONDS (9.0-12.0)
[2016-11-20 22:53] VITALS: BP 135/83; PULSE 70; TEMP 36.5; O2SAT 97
[2016-11-21] MEDS: ACETAMINOPHEN 325 MG TAB PO PRN ×3 (05:55→18:02)
[2016-11-21 07:50] LABS: BASO % 0.3 %; BASO ABS # 0.02 K/uL (0-0.2); COMPLETE YES; EOS % 5.3 %; HEMATOCRIT 33.8 % (42-52); IG% 0.3 %; LYMPH ABS # 0.64 K/uL (1.2-3.4); MEAN CELL VOLUME 92.3 fL (80-100); MEAN CORPUSCULAR HEMOGLOBIN 30.9 pg (25-34); MEAN CORPUSCULAR HGB CONC 33.4 g/dl (32-36); MEAN PLATELET VOLUME 9.8 fL (7.4-10.4); MONO % 12.4 %; NEUT % 72.7 %; PLATELET COUNT 268 K/uL (130-400); RED BLOOD COUNT 3.66 M/uL (4.7-6.1); WHITE BLOOD COUNT 7.15 K/uL (4.8-10.8)
[2016-11-21 07:53] VITALS: BP 114/66; PULSE 69; TEMP 36.5; O2SAT 95
[2016-11-21 08:00] VITALS: O2SAT 95
[2016-11-21] MEDS: BACITRACIN OINT 15 GM TUBE EXT SCH (08:05)
[2016-11-21] MEDS: DICLOFENAC SOD 1% GEL 100 GM TUBE EXT SCH ×4 (08:06→20:29)
[2016-11-21] MEDS: CLOPIDOGREL BISULFATE 75 MG TAB PO SCH (08:06)
[2016-11-21] MEDS: ASPIRIN 81 MG ECTAB PO SCH (08:06)
[2016-11-21] MEDS: OXYBUTYNIN CHLORIDE 5 MG TABCR PO SCH (08:06)
[2016-11-21] MEDS: LEVETIRACETAM 500 MG TAB PO SCH ×2 (08:06→20:29)
[2016-11-21] MEDS: ENOXAPARIN 40 MG/0.4 ML SYR SQ SCH (08:07)
[2016-11-21] MEDS: CYANOCOBALAMIN 500 MCG TAB (VIT B-12) PO SCH (08:07)
[2016-11-21 08:21] LABS: BUN/CREATININE RATIO 16.2 (10-20); CREATININE 0.84 mg/dl (0.60-1.40); POTASSIUM 3.5 mmol/L (3.5-5.1)
[2016-11-21 08:29] LABS: CALCIUM 8.1 mg/dl (8.5-10.1)
[2016-11-21 15:49] VITALS: BP 115/71; PULSE 70; TEMP 36.3; O2SAT 95
[2016-11-21 16:10] VITALS: O2SAT 96
--- NOTE | 2016-11-21 16:13 | Progress Note ---
Subjective Date of Service: Nov 21, 2016. Subjective Pt evaluation today including: conversation w/ patient, conversation w/ family , physical exam, chart review, lab review, review of inpatient medication list doing much better - upright and out of bed, in chair, eating. less sore all over pain improving. amenable to idea of SNF for rehab pending further input from PT/OT Problem List Medical Problems: (1) Altered mental status Status: Acute (2) Altered mental status Status: Acute (3) Contusion of rib on left side Status: Acute (4) Dehydration Status: Acute (5) LUE weakness Status: Acute Review of Systems ROS otherwise negative except for as above Objective Vital Signs Date Time Temp Pulse Resp B/P (MAP) Pulse Ox O2 Delivery O2 Flow Rate FiO2 11/21/16 15:49 36.3 70 22 115/71 (86) 95 Room Air 11/21/16 08:00 95 Room Air 11/21/16 07:53 36.5 69 16 114/66 (82) 95 Room Air 11/21/16 00:00 Room Air 11/20/16 22:53 36.5 70 18 135/83 (100) 97 Room Air 11/20/16 16:22 96 Room Air Physical Exam General Appearance: no apparent distress Eyes: EOMI ENT: hearing grossly normal Neck: trachea midline Respiratory/Chest: no respiratory distress, no accessory muscle use Extremities: normal range of motion Neurologic/Psychiatric: valuer II-XII nml as tested, alert, normal mood/affect Skin: normal color, warm/dry Laboratory Results Last 24 Hours Test 11/20/16 21:50 11/21/16 07:10 Prothrombin Time 11.6 SECONDS Prothromb Time International Ratio 1.1 Activated Partial Thromboplast Time 36.2 SECONDS Partial Thromboplastin Ratio 1.4 White Blood Count 7.15 K/uL Red Blood Count 3.66 M/uL Hemoglobin 11.3 g/dL Hematocrit 33.8 % Mean Corpuscular Volume 92.3 fL Mean Corpuscular Hemoglobin 30.9 pg Mean Corpuscular Hemoglobin Concent 33.4 g/dl Platelet Count 268 K/uL Mean Platelet Volume 9.8 fL Neutrophils (%) (Auto) 72.7 % Lymphocytes (%) (Auto) 9.0 % Monocytes (%) (Auto) 12.4 % Eosinophils (%) (Auto) 5.3 % Basophils (%) (Auto) 0.3 % Neutrophils # (Auto) 5.20 K/uL Lymphocytes # (Auto) 0.64 K/uL Monocytes # (Auto) 0.89 K/uL Eosinophils # (Auto) 0.38 K/uL Basophils # (Auto) 0.02 K/uL RDW Standard Deviation 51.1 fL RDW Coefficient of Variation 15.1 % Immature Granulocyte % (Auto) 0.3 % Immature Granulocyte # (Auto) 0.02 K/uL Sodium Level 143 mmol/L Potassium Level 3.5 mmol/L Chloride Level 111 mmol/L Carbon Dioxide Level 23 mmol/L Anion Gap 9.0 mmol/L Blood Urea Nitrogen 14 mg/dl Creatinine 0.84 mg/dl Est Creatinine Clear Calc Drug Dose 49.9 ml/min Estimated GFR () 90.0 Estimated GFR (Non- 77.6 BUN/Creatinine Ratio 16.2 Random Glucose 85 mg/dl Calcium Level 8.1 mg/dl Assessment and Plan 89 y/o male with a history of CVA, HLD, seizure disorder, and urinary incontinence who presented following a fall. The patient was felt floor on his left side around 11 AM and was confused with dysarthria at that time. It is unknown how or when the patient fell, or how long he was on the ground. The patient has some slurred speech arrival to the ED but this was improving at the time of admission. Also reports having intermittent hallucinations at the time of admission. Per patient and patient's son, he has been having ongoing left leg weakness practice. Son states he has had generalized weakness and increased difficulty ambulating lately. Patient complains of pain left shoulder and wrist. Left shoulder and left wrist x-rays negative for fracture. Head CT negative for acute findings. Fall, weakness-stable -with hindsight appearing most likely due to dehydration - improved. possible TIA but unlikely - manage as below -certainly dehydration could have also accounted for confusion/hallucinations as a delirium/metabolic encephalopathy -looks like he's probably going to need rehab, discussions with family - SNF w rehab emphasis appears most appropriate for his condition H/o CVA, abnormal MRA findings -d/w neuro, input appreciated. both doubt that cerebrovascular disease is part of acute presentation but still is an entity that needs managed -med management for now anemia -very likely drop is dilutional from dehydration HLD -Continue atorvastatin 40 mg PO qd Seizure disorder -Continue Keppra 500 mg PO BID -Keppra level pending Urinary incontinence -Continue oxybutynin 5 mg PO qd Arthritis - wrist -Voltaren gel QID - since changed to scheduled has improved hip pain -fortunatley no fracture - likely was arthritis flare as well, seems improving DVT prophylaxis -lovenox Code Status -Level I, FULL RESUSCITATION STATUS dispo -medically stable - anticipate SNF tomorrow w rehab emphasis
[2016-11-21] MEDS ORDERED: POLYETHYLENE (MIRALAX) 17 GM PACK PO PRN (16:15)
[2016-11-21] MEDS: ATORVASTATIN 20 MG TAB PO SCH (20:29)
[2016-11-21 23:20] VITALS: BP 122/66; PULSE 80; TEMP 36.6; O2SAT 95
[2016-11-22 07:30] VITALS: BP 124/75; PULSE 67; TEMP 36.4; O2SAT 99
[2016-11-22 08:10] VITALS: O2SAT 99
[2016-11-22] MEDS ORDERED: SENNA 8.6 MG TAB PO SCH (09:00)
[2016-11-22] MEDS ORDERED: POLYETHYLENE (MIRALAX) 17 GM PACK PO SCH (09:00)
[2016-11-22] MEDS: DICLOFENAC SOD 1% GEL 100 GM TUBE EXT SCH ×2 (09:15→13:00)
[2016-11-22] MEDS: BACITRACIN OINT 15 GM TUBE EXT SCH (09:15)
[2016-11-22] MEDS: ENOXAPARIN 40 MG/0.4 ML SYR SQ SCH (09:15)
[2016-11-22] MEDS: ASPIRIN 81 MG ECTAB PO SCH (09:15)
[2016-11-22] MEDS: LEVETIRACETAM 500 MG TAB PO SCH (09:16)
[2016-11-22] MEDS: CLOPIDOGREL BISULFATE 75 MG TAB PO SCH (09:16)
[2016-11-22] MEDS: CYANOCOBALAMIN 500 MCG TAB (VIT B-12) PO SCH (09:16)
[2016-11-22] MEDS: OXYBUTYNIN CHLORIDE 5 MG TABCR PO SCH (09:16)
[2016-11-22] MEDS ORDERED: VLTG EXT (09:21)
--- NOTE | 2016-11-22 09:26 | Discharge Instructions ---
Discharge Instructions Date of Service Nov 22, 2016. Admission Reason for Admission: Fall, Weakness VTE Date & Time Date of VTE Diagnosis: Nov 18, 2016 Time of VTE Diagnosis: 15:51 Discharge Goals Goal(s): Increase independence, Improve disease control Activity Recommendations Activity Limitations: resume your previous activity . Instructions / Follow-Up Instructions / Follow-Up Medication Instructions: Your condition is typically treated with an anticoagulant. Anticoagulants will thin your blood to help prevent new clots. * You should take her medication exactly as directed. * Never skip a dose. * Never take a double dose. If you miss a dose, take it as soon as you remember. Call your Primary Care doctor if you experience any of the following: * Swelling or Pain in your leg * Sudden, continuous pain deep in a muscle * Pain that worsens when you are active or when you stand still for a long time * Chest Pain * Sudden Shortness of Breath * Rapid or pounding heart beat * Fainting * Dizziness * Cough with blood or bloody sputum * Sweating more than normal * Bruises * Heavy or uncontrolled bleeding * Blood in your urine, stool or vomit * Black or tarry stools Caring for Your Self at Home: * Avoid sitting, standing or lying down for long periods without moving your legs and feet * When traveling by car, stop to get out and move around at least once every 3 hours * On long airplane, train or bus rides, get up and move around when possible * If you can't get up, wiggle your toes and tighten your calves to keep your blood moving Follow Up: It is important for you to keep your follow up appointments with your medical provider. Current Hospital Diet Patient's current hospital diet: AHA Diet (Heart Healthy) Discharge Diet Recommended Diet: AHA Diet (Heart Healthy) Pending Studies Studies pending at discharge: no Laboratory Results Hemoglobin A1c Test 11/19/16 13:11 Range/Units Estimated Average Glucose 120 mg/dl Hemoglobin A1c 5.8 H 4.5-5.6 % Lipid Panel Test 11/20/16 06:45 Range/Units Triglycerides Level 82 0-150 mg/dl Cholesterol Level 76 0-200 mg/dl HDL Cholesterol 36 mg/dl Cholesterol/HDL Ratio 2.1 LDL Cholesterol, Calculated 24 mg/dl Medical Emergencies . Who to Call and When: Medical Emergencies: If at any time you feel your situation is an emergency, please call 911 immediately. . Non-Emergent Contact Non-Emergency issues call your: Primary Care Provider . . "Provider Documentation" section prepared by Amanda Alvarado. . VTE Core Measure Inpt VTE Proph given/why not?: SCD's
[2016-11-22] MEDS: ACETAMINOPHEN 325 MG TAB PO PRN (10:00)
--- NOTE | 2016-11-22 11:11 | Discharge Summary ---
Discharge Summary Date of Service Nov 22, 2016. (Amanda Alvarado MD) Discharge Summary Admission Date: Nov 18, 2016 at 19:43 Discharge Date: Nov 22, 2016 Discharge Disposition: Home Principal Diagnosis: Falls Immunizations: Have You Had Influenza Vaccine: Yes Influenza Vaccine Date: May 29, 2006 History of Tetanus Vaccine?: Yes Tetanus Immunization Date: Sep 27, 2006 History of Pneumococcal: Yes History of Hepatitis B Vaccine: No Procedures: - HEAD CT NONCONTRAST Impression: Chronic and age-related change. No acute process. CHEST ONE VIEW PORTABLE IMPRESSION: No acute process. LEFT SHOULDER MIN 2 VIEWS ROUTINE CLINICAL HISTORY: Left shoulder pain. COMPARISON: Left shoulder radiographs December 20, 2014. FINDINGS: Alignment of the left shoulder is anatomic. There is no acute fracture. 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 IMPRESSION: No acute fracture or dislocation of the left shoulder. LEFT WRIST MIN 3 VIEWS ROUTINE CLINICAL HISTORY: Left wrist pain, redness and swelling. COMPARISON: Left wrist radiographs September 27, 2006. FINDINGS: There is extensive vascular calcification. 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 There is severe joint space narrowing with osteophytosis of the left first carpometacarpal joint. There is no fracture or suspicious lesion. There is marked joint space narrowing of the radiocarpal articulation. IMPRESSION: 1. No acute fracture. 2. 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 Consultations: Neurology, Dr Lemus (Amanda Alvarado MD) Medication Reconciliation New Medications: Diclofenac Sod (Voltaren) 100 Appln/100 Gm Gel 1 APPLN EXT QID for 30 Days, #1 TUBE Continued Medications: Atorvastatin (Lipitor) 40 Mg Tab 40 MG PO QPM Clopidogrel (Plavix) 75 Mg Tab 75 MG PO QAM Levetiracetam (Keppra) 500 Mg Tab 500 MG PO BID Oxybutynin Chloride (Oxybutynin Chloride ER) 5 Mg Tabcr 5 MG PO DAILY Discharge Exam Review of Systems: Constitutional: No fever, No chills, No sweats, No weight loss, No weakness Eyes: No worsening of vision ENT: No hearing loss Respiratory: No cough, No sputum, No wheezing Cardiovascular: No chest pain Abdomen: No pain, No nausea, No vomiting Musculoskeletal: No joint pain Genitourinary - Female: No dysuria, No urinary frequency, No hematuria Neurologic: No memory loss, No paralysis Psychiatric: No depression symptoms Endocrine: No excessive thirst Hematologic / Lymphatic: No abnormal bleeding/bruising Integumentary: No rash Physical Exam: General Appearance: WD/WN, no apparent distress Eyes: normal inspection, PERRL ENT: hearing grossly normal Neck: supple, no JVD Respiratory/Chest: lungs clear, normal breath sounds, no respiratory distress Cardiovascular: regular rate, rhythm, no murmur, normal peripheral pulses Abdomen / GI: normal bowel sounds, non tender, soft Extremities: no calf tenderness, no pedal edema Neurologic/Psychiatric: alert, normal mood/affect, oriented x 3 Skin: + rash (excoriation mattson to L hip and legs, healed significantly during admission) (Amanda Alvarado MD) Hospital Course HPI: The patient is an 89-year-old male, who lives with his granddaughter, who had seen him at 10 PM last evening and reportedly was normal. She left the house at 10:00 this morning, and he was still asleep, which is not unusual. His son went to check on the patient at 11 AM and found that he was on the floor on his left side, somewhat confused and having difficulty speaking. The patient himself is somewhat confused, so history of present illness is primarily obtained through the son who is present during examination. There is complaint primarily of left shoulder and arm discomfort, there is improving slurred speech , and he has been having intermittent hallucinations. The patient has had ongoing left leg weakness due to history of lumbar disc disease in the past. He was noted to have bruises on his left shoulder and left side. His son reports she's had decreased ability to ambulate recently including with his walker, which he has attributed to chronic low back pain and left leg weakness, with the addition of generalized weakness recently. The patient was most recently in hospital from July 18 through July 21, when he was diagnosed with having a fall secondary to generalized weakness associated with dehydration, and was discharged to a group home facility at that time for rehabilitation. HOSPITAL COURSE: Fall, weakness Likely from dehydration. TIA ruled out but is going to be medically managed as well Needs assistance ambulating, DC to SNF Anemia DC Hb 11.3 Hyperlipidemia Continue atorvastatin 40 mg PO qd Seizure disorder Continue Keppra 500 mg PO BID Keppra level pending Urinary incontinence Continue oxybutynin 5 mg PO qd Arthritis - wrist -Voltaren gel QID - since changed to scheduled has improved Code Status -Level I, FULL RESUSCITATION STATUS Discharged 11/22/16 to [facility] for rehab Total Time Spent: Greater than 30 minutes This includes examination of the patient, discharge planning, medication reconciliation, and communication with other providers. (Amanda Alvarado MD) Resident Physician Supervision Note: I was present with Dr. Alvarado during the history and exam. I discussed the case with the resident and agree with the findings and plan as documented in the note. Any exceptions or clarifications are listed here: I also personally saw the patient and discussed plan of care with the son. Documented By: [place] Total Time Spent: Less than 30 minutes ([place],D.O.) Discharge Instructions Please refer to the electronic Patient Visit Report (Discharge Instructions) for additional information. (Amanda Alvarado MD) Follow-Up Follow up with PCP (Amanda Alvarado MD) Additional Copies To Moy Hilliard Resident Tracking Resident Involvement: Resident Care Provided Care Provided: Adult Hospital Medicine (Amanda Alvarado MD)
[2016-11-22 15:09] VITALS: BP 124/75; PULSE 67; TEMP 36.4; O2SAT 99
== END 2016-11-22 15:40 | DRG 641 ==
LOC: C.EDB 15:03 → C.2T 19:43 → ENRESERV 19:52 → C.MS2W 11-19 16:45
PROVIDERS: ADMIT Hospitalist; ATTEND Family Medicine
DX: E86.0 Dehydration (principal); R44.3 Hallucinations, unspecified; R29.6 Repeated falls; D64.9 Anemia, unspecified; E78.00 Pure hypercholesterolemia, unspecified; R32 Unspecified urinary incontinence; G62.9 Polyneuropathy, unspecified; M25.512 Pain in left shoulder; M25.532 Pain in left wrist; M25.552 Pain in left hip; G40.909 Epilepsy, unspecified, not intractable, without status epilepticus; Z79.02 Long term (current) use of antithrombotics/antiplatelets; Z79.899 Other long term (current) drug therapy; Z86.73 Personal history of transient ischemic attack (TIA), and cerebral infarction without residual deficits; Z91.81 History of falling